=== PATIENT | female | born 1940 | race Caucasian/White ===

== ENCOUNTER → 2017-10-03 | Outpatient (CLI) | payer MEDICARE, OTHER ==
[~2017-10-03] MED LIST: ACET325 PO; ASPI81CH PO; CODLIVC PO; COPAXONE40 MG/1 ML SC; COPAXONE40 MG/1 ML SQ; CRANBERRY EXTRACT PO; FURO20 PO; GRAM-O-LECI1000 MG PO; Iron Supplemen325 MG PO; LAVAP17G PO; METO100ER PO; METO25ER PO; MULVITMIND PO; Macrodantin100 MG PO; NAPR220 PO; ONDA4ODT MM; OXYACE5T PO; Pacerone400 MG PO; Prilosec Otc20 MG PO; SOLI5 PO; SPIR25 PO; TORSE20 PO; Tambocor100 MG PO; Toprol Xl50 MG PO; XARELTO20 MG PO; [UNRECOGNIZED DRUG - CODE] PO; [UNRECOGNIZED DRUG - OTHER] PO
== END | disposition home or self-care (01) ==
LOC: OLS 16:43
DX: R31.9 Hematuria, unspecified (principal)
CPT/HCPCS: 87077; 87086; 87186

== ENCOUNTER → 2018-03-12 | Outpatient (CLI) | payer MEDICARE, OTHER | END | disposition home or self-care (01) | LOC: LAB 11:21 → LAB SHORT 11:21 | DX: R30.0 Dysuria (principal) | CPT/HCPCS: 87077; 87086; 87186 ==

== ENCOUNTER → 2018-03-29 | Outpatient (CLI) | payer MEDICARE, OTHER | END | disposition home or self-care (01) | LOC: LAB SHORT 16:27 → LAB 16:27 | DX: M54.9 Dorsalgia, unspecified (principal); G89.29 Other chronic pain; R30.0 Dysuria | CPT/HCPCS: 87077; 87086; 87186 ==

== ENCOUNTER → 2018-04-08 | Outpatient (CLI) | payer MEDICARE, OTHER | END | disposition home or self-care (01) | LOC: LAB SHORT 17:31 → LAB 17:31 | DX: R30.0 Dysuria (principal) | CPT/HCPCS: 87077; 87086 ==

== ENCOUNTER 2018-04-17 08:25 | Day surgery (SDC) | payer MEDICARE, OTHER | END 2018-04-17 22:43 | disposition home or self-care (01) | LOC: RAD 08:25 | DX: M47.817 Spondylosis without myelopathy or radiculopathy, lumbosacral region (principal); M96.1 Postlaminectomy syndrome, not elsewhere classified; Z98.1 Arthrodesis status; M51.24 Other intervertebral disc displacement, thoracic region; M48.04 Spinal stenosis, thoracic region; M99.53 Intervertebral disc stenosis of neural canal of lumbar region | CPT/HCPCS: 62305; 72129; 72132; Q9967 ==

== ENCOUNTER → 2018-10-30 | Outpatient (CLI) | payer MEDICARE, OTHER ==
[2018-11-01 14:07] LABS: HPV 16 Negative (Negative); HPV 18 Negative (Negative); HPV OTHER HR TYPES Negative (Negative)
== END | disposition home or self-care (01) ==
LOC: LAB SHORT 18:42 → LAB 18:42
PROVIDERS: Obstetrics & Gynecology Gynecology
DX: Z12.4 Encounter for screening for malignant neoplasm of cervix (principal)
CPT/HCPCS: 87624; G0123

== ENCOUNTER 2019-01-03 12:22 | Emergency (ER) | payer MEDICARE, OTHER ==
[~2019-01-03] VITALS: Ht 170.2 cm; Wt 70.3 kg
[2019-01-03] MEDS ORDERED: TYLECOD3 (12:35)
[2019-01-03 12:46] LABS: BASOPHILS ABSOLUTE AUTO 0.02 K/mm3 (0.00-0.23); BASOPHILS PERCENT AUTO 0 % (0-2); EOSINOPHILS ABSOLUTE AUTO 0.02 K/mm3 (0.00-0.68); EOSINOPHILS PERCENT AUTO 0 % (0-6); Hemoglobin 14.7 g/dL (11.5-16.0); IMMATURE GRAN ABSOLUTE AUTO 0.02 K/mm3 (0.00-0.10); IMMATURE GRAN PERCENT AUTO 0 % (0-1); LYMPHOCYTES ABSOLUTE AUTO 1.41 K/mm3 (0.84-5.20); LYMPHOCYTES PERCENT AUTO 20 % (21-46); MONOCYTES ABSOLUTE AUTO 0.85 K/mm3 (0.16-1.47); MONOCYTES PERCENT AUTO 12 % (4-13); Mean Corpuscular HGB 29.2 pg (26.0-34.0); Mean Corpuscular HGB Conc 33.4 g/dL (31.5-36.5); Mean Corpuscular Volume 87 fL (80-100); Mean Platelet Volume 11.9 fL (9.1-12.4); NEUTROPHILS ABSOLUTE AUTO 4.84 K/mm3 (1.96-9.15); NEUTROPHILS PERCENT AUTO 68 % (41-73); Platelet Count 181 K/mm3 (150-400); RDW Coefficient Variation 13.3 % (11.7-14.2); Red Blood Cell Count 5.04 M/mm3 (3.80-5.20); White Blood Cell Count 7.16 K/mm3 (4.00-11.30)
[2019-01-03 13:08] LABS: Alanine Aminotransfer (ALT/SGP 17 U/L (12-78); Albumin, Blood 3.5 g/dL (3.4-5.0); Albumin/Globulin Ratio 1.1 (0.8-1.8); Alk Phos 69 U/L (50-136); Anion Gap 9 mmol/L (6-16); Aspartate Aminotrans (AST/SGOT 18 U/L (12-37); Bilirubin, Total 0.4 mg/dL (0.1-1.0); Blood Urea Nitrogen 25 mg/dL (8-24); Bun/Creatinine Ratio 32.4 (12.0-20.0); CO2, Blood 26 mmol/L (21-32); Calcium, Blood 8.7 mg/dL (8.5-10.1); Chloride, Blood 102 mmol/L (98-108); Creatinine, Blood 0.77 mg/dL (0.40-1.00); Globulin, Blood 3.2 g/dL (2.2-4.0); Glomerular Filtration Rate >60 (60-); Glucose, Blood 117 mg/dL (70-99); Sodium, Blood 137 mmol/L (136-145); Total Protein, Blood 6.7 g/dL (6.4-8.2)
== END 2019-01-03 14:19 | disposition home or self-care (01) ==
LOC: ER 12:22
PROVIDERS: Emergency Medicine
DX: I48.91 Unspecified atrial fibrillation (principal); I48.92 Unspecified atrial flutter; I50.9 Heart failure, unspecified; M19.90 Unspecified osteoarthritis, unspecified site; Z88.2 Allergy status to sulfonamides; Z88.8 Allergy status to other drugs, medicaments and biological substances; Z79.899 Other long term (current) drug therapy
CPT/HCPCS: 71045; 80053; 85025; 92960; 93005; 93010; 96361-59; 96374-59; 99285-25; J2704; J3010; J7030

== ENCOUNTER 2019-03-06 05:08 | Observation (INO) | payer MEDICARE, OTHER ==
[~2019-03-06] VITALS: Ht 170.2 cm; Wt 70.3 kg
[~2019-03-06 05:08] MED LIST changes: +TYLECOD3
[2019-03-06 05:34] LABS: BASOPHILS ABSOLUTE AUTO 0.01 K/mm3 (0.00-0.23); BASOPHILS PERCENT AUTO 0 % (0-2); EOSINOPHILS ABSOLUTE AUTO 0.04 K/mm3 (0.00-0.68); EOSINOPHILS PERCENT AUTO 0 % (0-6); Hematocrit 47.5 % (33.0-51.0); Hemoglobin 15.7 g/dL (11.5-16.0); IMMATURE GRAN ABSOLUTE AUTO 0.03 K/mm3 (0.00-0.10); IMMATURE GRAN PERCENT AUTO 0 % (0-1); LYMPHOCYTES ABSOLUTE AUTO 1.41 K/mm3 (0.84-5.20); LYMPHOCYTES PERCENT AUTO 12 % (21-46); MONOCYTES ABSOLUTE AUTO 1.14 K/mm3 (0.16-1.47); MONOCYTES PERCENT AUTO 10 % (4-13); Mean Corpuscular HGB 29.2 pg (26.0-34.0); Mean Corpuscular HGB Conc 33.1 g/dL (31.5-36.5); Mean Corpuscular Volume 89 fL (80-100); Mean Platelet Volume 11.4 fL (9.1-12.4); NEUTROPHILS ABSOLUTE AUTO 9.39 K/mm3 (1.96-9.15); NEUTROPHILS PERCENT AUTO 78 % (41-73); Platelet Count 216 K/mm3 (150-400); RDW Coefficient Variation 13.4 % (11.7-14.2); RDW Standard Deviation 43.6 fL (35.1-46.3); Red Blood Cell Count 5.37 M/mm3 (3.80-5.20); White Blood Cell Count 12.02 K/mm3 (4.00-11.30)
[2019-03-06 05:57] LABS: Alanine Aminotransfer (ALT/SGP 19 U/L (12-78); Albumin, Blood 3.8 g/dL (3.4-5.0); Albumin/Globulin Ratio 1.1 (0.8-1.8); Alk Phos 83 U/L (50-136); Anion Gap 9 mmol/L (6-16); Aspartate Aminotrans (AST/SGOT 21 U/L (12-37); Bilirubin, Total 0.4 mg/dL (0.1-1.0); Blood Urea Nitrogen 19 mg/dL (8-24); Bun/Creatinine Ratio 25.8 (12.0-20.0); CO2, Blood 26 mmol/L (21-32); Calcium, Blood 8.9 mg/dL (8.5-10.1); Chloride, Blood 101 mmol/L (98-108); Creatinine, Blood 0.74 mg/dL (0.40-1.00); Globulin, Blood 3.4 g/dL (2.2-4.0); Glomerular Filtration Rate >60 (60-); Glucose, Blood 152 mg/dL (70-99); Potassium, Blood 3.7 mmol/L (3.5-5.5); Sodium, Blood 136 mmol/L (136-145); Total Protein, Blood 7.2 g/dL (6.4-8.2); Troponin I <0.015 ng/mL (0.000-0.040)
[2019-03-06 09:57] LABS: Source, Urine Clean Catch
[2019-03-06 10:03] LABS: Bilirubin, Urine Neg (Neg); Blood, Urine 4+ (Neg); Glucose Qualitative, Urine Neg (Neg); Ketones, Urine Neg (Neg); Leukocyte Esterase, Urine 3+ (Neg); Nitrite, Urine Pos (Neg); Protein, Urine 2+ (Neg); Urobilinogen, Urine NORM (Normal)
[2019-03-06 10:04] LABS: Appearance, Urine Clear (Clear); Color, Urine Yellow (P-Yellow)
[2019-03-06 10:11] LABS: Squamous Epithelial Cells Rare /hpf (Few); White Blood Cells, Urine TNTC /hpf (0-5)
[2019-03-06 10:12] LABS: Bacteria Mod /hpf; Calcium Oxalate Crystals Few /hpf
--- NOTE | 2019-03-06 11:50 | NUR ---
PT ARRIVAL. PT ARRIVED ON UNIT AT 1055. PT IS A&Ox4 AND 2 P TRANSFER D/T HER M.S. PT WAS ADMITTED FOR AFIB RVR AND WAS ON CARDIZEM GTT, CARDIZEM GTT WAS STOPPED APROX 1000 PER REPORT. PT IS STILL IN AFIB BUT RATE IS MORE CONTROLLED IN THE 60'S-70'S. PT DENIES CHEST PAIN/PRESSURE, N/V OR SOB AT THIS TIME. PT'S VS STABLE. PT HAS SUPERPUBIC CATH WHICH IS DRAINING YELLOW URINE TO GRAVITY. PT'S IS AT THE BEDSIDE. CALL LIGHT IN REACH, BED IS LOCKED AND LOW WILL CONTINUE TO MONITOR.
[2019-03-06 14:53] LABS: Troponin I 0.168 ng/mL (0.000-0.040)
[2019-03-06] MEDS ORDERED: DILT120 PO (16:35)
[2019-03-06] MEDS ORDERED: Aspir 8181 MG PO (16:36)
--- NOTE | 2019-03-06 16:59 | NUR ---
SHIFT SUMMARY. NO ACUTE CHANGES NOTED SINCE ADMIT. PT'S VS STABLE, PT IS STILL IN AFIB BUT RATE IS CONTROLED ON PO MEDICATIONS. PT DENIES CHEST PAIN/PRESSURE, N/V OR SOB. PT'S SUPER PUBIC CATH IS DRAINING YELLOW URINE WITH SOME SEDIMENT TO GRAVITY. PT IS TO BE D/C'D HOME AFTER EATING DINNER, PT'S MEDICATIONS CALLED INTO PHARMACY OF PT'S CHOICE, EDUCATION PROVIDED TO PT AND ON NEW MEDICATIONS AND AFIB. PT'S BELONGINGS PACKED UP, PT WAS HELPED TO GET DRESSED AND IV WAS D/C'D. PT'S AT THE BEDSIDE TO TAKE PT HOME.
== END 2019-03-06 18:03 | disposition home or self-care (01) ==
LOC: ER 05:08 → ERHOLD 05:09 → PCU 11:00
PROVIDERS: Emergency Medicine; ADMIT Internal Medicine
DX: I48.91 Unspecified atrial fibrillation (principal); R11.2 Nausea with vomiting, unspecified; I24.8 Other forms of acute ischemic heart disease; R77.8 Other specified abnormalities of plasma proteins; G35 Multiple sclerosis; M19.90 Unspecified osteoarthritis, unspecified site; Z79.899 Other long term (current) drug therapy; Z79.02 Long term (current) use of antithrombotics/antiplatelets; Z88.8 Allergy status to other drugs, medicaments and biological substances; Z88.1 Allergy status to other antibiotic agents; Z88.2 Allergy status to sulfonamides
CPT/HCPCS: 36415; 71045; 80053; 81001; 82550; 83690; 83735; 83880; 84484; 85025; 87077; 87086; 87186; 93005; 93010; 96365; 96366; 96367; 96368; 96375; 96376; 99285-25; G0378; J2405; J3480; J7030

== ENCOUNTER 2019-03-11 12:27 | Emergency (ER) | payer MEDICARE, OTHER ==
[~2019-03-11] VITALS: Ht 170.2 cm; Wt 71.7 kg
[~2019-03-11 12:27] MED LIST changes: +Aspir 8181 MG PO; +DILT120 PO
[2019-03-11 13:11] LABS: BASOPHILS ABSOLUTE AUTO 0.01 K/mm3 (0.00-0.23); BASOPHILS PERCENT AUTO 0 % (0-2); EOSINOPHILS ABSOLUTE AUTO 0.01 K/mm3 (0.00-0.68); EOSINOPHILS PERCENT AUTO 0 % (0-6); Hematocrit 43.1 % (33.0-51.0); Hemoglobin 14.5 g/dL (11.5-16.0); IMMATURE GRAN ABSOLUTE AUTO 0.01 K/mm3 (0.00-0.10); IMMATURE GRAN PERCENT AUTO 0 % (0-1); LYMPHOCYTES ABSOLUTE AUTO 1.17 K/mm3 (0.84-5.20); LYMPHOCYTES PERCENT AUTO 16 % (21-46); MONOCYTES ABSOLUTE AUTO 0.81 K/mm3 (0.16-1.47); MONOCYTES PERCENT AUTO 11 % (4-13); Mean Corpuscular HGB 30.1 pg (26.0-34.0); Mean Corpuscular HGB Conc 33.6 g/dL (31.5-36.5); Mean Corpuscular Volume 89 fL (80-100); NEUTROPHILS ABSOLUTE AUTO 5.38 K/mm3 (1.96-9.15); NEUTROPHILS PERCENT AUTO 73 % (41-73); Platelet Count 209 K/mm3 (150-400); RDW Coefficient Variation 13.7 % (11.7-14.2); RDW Standard Deviation 44.7 fL (35.1-46.3); Red Blood Cell Count 4.82 M/mm3 (3.80-5.20); White Blood Cell Count 7.39 K/mm3 (4.00-11.30)
[2019-03-11 13:33] LABS: Alanine Aminotransfer (ALT/SGP 49 U/L (12-78); Albumin, Blood 3.5 g/dL (3.4-5.0); Albumin/Globulin Ratio 1.1 (0.8-1.8); Alk Phos 63 U/L (50-136); Anion Gap 7 mmol/L (6-16); Aspartate Aminotrans (AST/SGOT 35 U/L (12-37); Bilirubin, Total 0.5 mg/dL (0.1-1.0); Blood Urea Nitrogen 20 mg/dL (8-24); Bun/Creatinine Ratio 32.4 (12.0-20.0); CO2, Blood 27 mmol/L (21-32); Calcium, Blood 8.4 mg/dL (8.5-10.1); Chloride, Blood 98 mmol/L (98-108); Creatinine, Blood 0.62 mg/dL (0.40-1.00); Globulin, Blood 3.2 g/dL (2.2-4.0); Glomerular Filtration Rate >60 (60-); Glucose, Blood 116 mg/dL (70-99); Potassium, Blood 4.2 mmol/L (3.5-5.5); Sodium, Blood 132 mmol/L (136-145); Total Protein, Blood 6.7 g/dL (6.4-8.2); Troponin I <0.015 ng/mL (0.000-0.040)
[2019-03-11] MEDS ORDERED: ELIQUIS5 MG PO (15:28)
[2019-03-11] MEDS ORDERED: Percocet 5-3251 EACH PO (15:28)
[2019-03-11] MEDS ORDERED: TORSE20 PO (15:29)
[2019-03-11] MEDS ORDERED: Toprol Xl25 MG PO (15:30)
[2019-03-11] MEDS ORDERED: PANT40 PO (15:30)
[2019-03-11] MEDS ORDERED: SPIR25 PO (15:31)
[2019-03-11] MEDS ORDERED: RALO60 PO (16:07)
[2019-03-11] MEDS ORDERED: Elemental Calc600 MG PO (16:08)
[2019-03-11] MEDS ORDERED: VITAMIN D32000 UNI1 PO (16:08)
[2019-03-11] MEDS ORDERED: ACET325 PO (16:09)
[2019-03-11] MEDS ORDERED: COPAXONE40 MG/1 ML SC (16:14)
[2019-03-11] MEDS ORDERED: Amiodarone HCl200 MG PO (17:04)
[2019-03-11] MEDS ORDERED: Pacerone400 MG PO (17:04)
== END 2019-03-11 17:10 | disposition home or self-care (01) ==
LOC: ER 12:27
PROVIDERS: Emergency Medicine
DX: I48.91 Unspecified atrial fibrillation (principal); G89.29 Other chronic pain; M54.9 Dorsalgia, unspecified; Z87.891 Personal history of nicotine dependence; Z79.899 Other long term (current) drug therapy; Z88.2 Allergy status to sulfonamides; Z88.8 Allergy status to other drugs, medicaments and biological substances; Z88.1 Allergy status to other antibiotic agents; Z79.82 Long term (current) use of aspirin
CPT/HCPCS: 36415; 71045; 80053; 83880; 84484; 85025; 92960; 93005; 93010; 96374-59; 99285-25; J0282; J2704; J7030

== ENCOUNTER → 2019-04-18 | Outpatient (CLI) | payer MEDICARE, OTHER ==
[~2019-04-18] MED LIST changes: +Amiodarone HCl200 MG PO; +ELIQUIS5 MG PO; +Elemental Calc600 MG PO; +PANT40 PO; +Percocet 5-3251 EACH PO; +RALO60 PO; +Toprol Xl25 MG PO; +VITAMIN D32000 UNI1 PO
== END | disposition home or self-care (01) ==
LOC: LAB 18:06 → LAB SHORT 18:06
DX: R30.0 Dysuria (principal)
CPT/HCPCS: 87077; 87086; 87186

== ENCOUNTER → 2019-08-27 | Outpatient (CLI) | payer MEDICARE, OTHER ==
[2019-08-27 20:27] LABS: U Amphetamine Screen Not Detected; U Barbituate Screen Not Detected; U Benzodiazapine Screen Not Detected; U Cocaine Screen Not Detected; U Methadone Screen Not Detected; U Methamphetamine Screen Not Detected; U Opiates Screen Not Detected; U Oxycodone Screen DETECTED
[2019-08-27 20:28] LABS: U Buprenorphine Screen Not Detected; U Cannabinoids Screen Not Detected; U Propoxyphene Screen Not Detected
== END ==
LOC: LAB SHORT 17:46 → LAB 17:46
PROVIDERS: Nurse Practitioner Family
DX: Z51.81 Encounter for therapeutic drug level monitoring (principal); Z79.899 Other long term (current) drug therapy

== ENCOUNTER 2019-09-27 08:51 | Emergency (ER) | payer MEDICARE, OTHER ==
[~2019-09-27] VITALS: Ht 170.2 cm; Wt 71.7 kg
[2019-09-27] MEDS ORDERED: ZYRTEC10 M2 (09:37)
[2019-09-27] MEDS ORDERED: PACERONE100 M1 PO (09:37)
[2019-09-27 09:51] LABS: BASOPHILS ABSOLUTE AUTO 0.02 K/mm3 (0.00-0.23); BASOPHILS PERCENT AUTO 0 % (0-2); EOSINOPHILS ABSOLUTE AUTO 0.03 K/mm3 (0.00-0.68); EOSINOPHILS PERCENT AUTO 0 % (0-6); Hematocrit 45.8 % (33.0-51.0); IMMATURE GRAN ABSOLUTE AUTO 0.01 K/mm3 (0.00-0.10); IMMATURE GRAN PERCENT AUTO 0 % (0-1); LYMPHOCYTES ABSOLUTE AUTO 1.34 K/mm3 (0.84-5.20); LYMPHOCYTES PERCENT AUTO 16 % (21-46); MONOCYTES ABSOLUTE AUTO 0.82 K/mm3 (0.16-1.47); MONOCYTES PERCENT AUTO 10 % (4-13); Mean Corpuscular HGB 29.2 pg (26.0-34.0); Mean Corpuscular HGB Conc 32.8 g/dL (31.5-36.5); Mean Corpuscular Volume 89 fL (80-100); Mean Platelet Volume 11.9 fL (9.1-12.4); NEUTROPHILS ABSOLUTE AUTO 6.15 K/mm3 (1.96-9.15); NEUTROPHILS PERCENT AUTO 74 % (41-73); Platelet Count 186 K/mm3 (150-400); RDW Coefficient Variation 13.6 % (11.7-14.2); RDW Standard Deviation 44.6 fL (35.1-46.3); Red Blood Cell Count 5.13 M/mm3 (3.80-5.20); White Blood Cell Count 8.37 K/mm3 (4.00-11.30)
[2019-09-27 10:14] LABS: Alanine Aminotransfer (ALT/SGP 14 U/L (12-78); Albumin, Blood 3.5 g/dL (3.4-5.0); Albumin/Globulin Ratio 1.1 (0.8-1.8); Alk Phos 80 U/L (50-136); Anion Gap 10 mmol/L (6-16); Aspartate Aminotrans (AST/SGOT 18 U/L (12-37); Bilirubin, Total 0.6 mg/dL (0.1-1.0); Blood Urea Nitrogen 17 mg/dL (8-24); CO2, Blood 25 mmol/L (21-32); Calcium, Blood 8.6 mg/dL (8.5-10.1); Chloride, Blood 103 mmol/L (98-108); Creatinine, Blood 0.77 mg/dL (0.40-1.00); Globulin, Blood 3.3 g/dL (2.2-4.0); Glomerular Filtration Rate >60 (60-); Glucose, Blood 130 mg/dL (70-99); Potassium, Blood 3.6 mmol/L (3.5-5.5); Sodium, Blood 138 mmol/L (136-145); Total Protein, Blood 6.8 g/dL (6.4-8.2)
== END 2019-09-27 11:11 | disposition home or self-care (01) ==
LOC: ER 08:51
PROVIDERS: Emergency Medicine
DX: I48.0 Paroxysmal atrial fibrillation (principal); M19.90 Unspecified osteoarthritis, unspecified site; G35 Multiple sclerosis; Z88.2 Allergy status to sulfonamides; Z88.1 Allergy status to other antibiotic agents; Z88.8 Allergy status to other drugs, medicaments and biological substances; Z79.899 Other long term (current) drug therapy
CPT/HCPCS: 36415; 71045; 80053; 85025; 93005; 93010; 99285-25; J2704; J7030

== ENCOUNTER 2019-10-11 15:04 | Emergency (ER) | payer MEDICARE, OTHER ==
[~2019-10-11] VITALS: Ht 157.5 cm; Wt 61.2 kg
[~2019-10-11 15:04] MED LIST changes: +PACERONE100 M1 PO; +ZYRTEC10 M2
[2019-10-11 15:36] LABS: BASOPHILS ABSOLUTE AUTO 0.02 K/mm3 (0.00-0.23); BASOPHILS PERCENT AUTO 0 % (0-2); EOSINOPHILS ABSOLUTE AUTO 0.05 K/mm3 (0.00-0.68); EOSINOPHILS PERCENT AUTO 1 % (0-6); Hematocrit 46.7 % (33.0-51.0); Hemoglobin 15.3 g/dL (11.5-16.0); IMMATURE GRAN ABSOLUTE AUTO 0.02 K/mm3 (0.00-0.10); IMMATURE GRAN PERCENT AUTO 0 % (0-1); LYMPHOCYTES ABSOLUTE AUTO 1.64 K/mm3 (0.84-5.20); LYMPHOCYTES PERCENT AUTO 20 % (21-46); MONOCYTES ABSOLUTE AUTO 0.76 K/mm3 (0.16-1.47); MONOCYTES PERCENT AUTO 10 % (4-13); Mean Corpuscular HGB 29.7 pg (26.0-34.0); Mean Corpuscular HGB Conc 32.8 g/dL (31.5-36.5); Mean Corpuscular Volume 91 fL (80-100); Mean Platelet Volume 11.1 fL (9.1-12.4); NEUTROPHILS ABSOLUTE AUTO 5.55 K/mm3 (1.96-9.15); NEUTROPHILS PERCENT AUTO 69 % (41-73); Platelet Count 271 K/mm3 (150-400); RDW Coefficient Variation 13.2 % (11.7-14.2); RDW Standard Deviation 44.4 fL (35.1-46.3); Red Blood Cell Count 5.16 M/mm3 (3.80-5.20); White Blood Cell Count 8.04 K/mm3 (4.00-11.30)
[2019-10-11 15:59] LABS: Alanine Aminotransfer (ALT/SGP 15 U/L (12-78); Albumin, Blood 3.5 g/dL (3.4-5.0); Alk Phos 76 U/L (50-136); Anion Gap 7 mmol/L (6-16); Aspartate Aminotrans (AST/SGOT 18 U/L (12-37); Bilirubin, Total 0.3 mg/dL (0.1-1.0); Blood Urea Nitrogen 25 mg/dL (8-24); Bun/Creatinine Ratio 30.3 (12.0-20.0); CO2, Blood 29 mmol/L (21-32); Calcium, Blood 8.8 mg/dL (8.5-10.1); Chloride, Blood 100 mmol/L (98-108); Creatinine, Blood 0.82 mg/dL (0.40-1.00); Globulin, Blood 3.4 g/dL (2.2-4.0); Glomerular Filtration Rate >60 (60-); Glucose, Blood 123 mg/dL (70-99); Sodium, Blood 136 mmol/L (136-145); Total Protein, Blood 6.9 g/dL (6.4-8.2); Troponin I <0.015 ng/mL (0.000-0.040)
[2019-10-11] MEDS ORDERED: Vibramycin100 MG PO (16:32)
== END 2019-10-11 16:56 | disposition home or self-care (01) ==
LOC: ER 15:04
PROVIDERS: Nurse Practitioner
DX: J18.9 Pneumonia, unspecified organism (principal); I48.91 Unspecified atrial fibrillation; G35 Multiple sclerosis; M19.90 Unspecified osteoarthritis, unspecified site; Z88.2 Allergy status to sulfonamides; Z88.8 Allergy status to other drugs, medicaments and biological substances; Z88.1 Allergy status to other antibiotic agents; Z79.899 Other long term (current) drug therapy
CPT/HCPCS: 36415; 71046; 80053; 83880; 84484; 85025; 92960; 93005; 93010; 99285-25; J2704; J7030

== ENCOUNTER 2020-04-22 14:25 | Emergency (ER) | payer MEDICARE, OTHER | END 2020-04-22 15:51 | disposition home or self-care (01) | LOC: ER 14:25 | DX: Z46.6 Encounter for fitting and adjustment of urinary device (principal); Z43.5 Encounter for attention to cystostomy; I48.91 Unspecified atrial fibrillation; Z88.2 Allergy status to sulfonamides; Z88.1 Allergy status to other antibiotic agents; Z88.8 Allergy status to other drugs, medicaments and biological substances; Z79.01 Long term (current) use of anticoagulants; Z79.899 Other long term (current) drug therapy ==

== ENCOUNTER 2022-01-06 17:30 | Emergency (ER) | payer MEDICARE, OTHER ==
[~2022-01-06] VITALS: Ht 170.2 cm; Wt 68.0 kg
[~2022-01-06 17:30] MED LIST changes: +ACET500 PO; +CENTRUM SILVER1 EAC2 PO; +MIRALAX17 GM PO; +TUMS500 MG PO; +VITAMIN D-32000 UNIT PO; +Vibramycin100 MG PO
[2022-01-06 18:48] LABS: BASOPHILS ABSOLUTE AUTO 0.02 K/mm3 (0.00-0.23); BASOPHILS PERCENT AUTO 0 % (0-2); EOSINOPHILS ABSOLUTE AUTO 0.05 K/mm3 (0.00-0.68); EOSINOPHILS PERCENT AUTO 1 % (0-6); Hematocrit 48.4 % (33.0-51.0); Hemoglobin 16.2 g/dL (11.5-16.0); IMMATURE GRAN ABSOLUTE AUTO 0.02 K/mm3 (0.00-0.10); IMMATURE GRAN PERCENT AUTO 0 % (0-1); LYMPHOCYTES ABSOLUTE AUTO 1.11 K/mm3 (0.84-5.20); LYMPHOCYTES PERCENT AUTO 13 % (21-46); MONOCYTES ABSOLUTE AUTO 0.77 K/mm3 (0.16-1.47); MONOCYTES PERCENT AUTO 9 % (4-13); Mean Corpuscular HGB 30.1 pg (26.0-34.0); Mean Corpuscular HGB Conc 33.5 g/dL (31.5-36.5); Mean Corpuscular Volume 90 fL (80-100); NEUTROPHILS ABSOLUTE AUTO 6.31 K/mm3 (1.96-9.15); NEUTROPHILS PERCENT AUTO 76 % (41-73); Platelet Count 128 K/mm3 (150-400); RDW Coefficient Variation 14.3 % (11.7-14.2); Red Blood Cell Count 5.38 M/mm3 (3.80-5.20); White Blood Cell Count 8.28 K/mm3 (4.00-11.30)
[2022-01-06 19:14] LABS: Albumin, Blood 3.6 g/dL (3.4-5.0); Albumin/Globulin Ratio 1.2 (0.8-1.8); Bilirubin, Total 0.8 mg/dL (0.1-1.0); Globulin, Blood 3.1 g/dL (2.2-4.0); Magnesium, Blood 2.8 mg/dL (1.6-2.4); Potassium, Blood 4.2 mmol/L (3.5-5.5); Total Protein, Blood 6.7 g/dL (6.4-8.2)
[2022-01-06 22:37] LABS: Source, Urine Clean Catch
[2022-01-06 22:46] LABS: Bilirubin, Urine Neg (Neg); Blood, Urine 2+ (Neg); Glucose Qualitative, Urine Neg (Neg); Ketones, Urine Neg (Neg); Leukocyte Esterase, Urine 2+ (Neg); Nitrite, Urine Neg (Neg); Protein, Urine 1+ (Neg); Urobilinogen, Urine NORM (Normal)
[2022-01-06 22:55] LABS: Appearance, Urine Clear (Clear); Color, Urine Pale Yellow (P-Yellow)
[2022-01-06 23:15] LABS: Bacteria Rare /hpf; Red Blood Cells, Urine 0-2 /hpf (0-2); Squamous Epithelial Cells Not Seen /hpf (Few); White Blood Cells, Urine 0-2 /hpf (0-5)
== END 2022-01-07 01:54 | disposition home or self-care (01) ==
LOC: ER 17:30
PROVIDERS: Physician Assistant
DX: I48.91 Unspecified atrial fibrillation (principal); Z79.01 Long term (current) use of anticoagulants; Z79.899 Other long term (current) drug therapy; Z88.2 Allergy status to sulfonamides; Z88.8 Allergy status to other drugs, medicaments and biological substances; Z87.891 Personal history of nicotine dependence
CPT/HCPCS: 36415; 71045; 80053; 81001; 83690; 83735; 83880; 84484; 85025; 87077; 87086; 87186; 93005; 93010; 96361; 96374; 99285-25; A9270; J7030

== ENCOUNTER → 2022-01-11 | Outpatient (CLI) | payer MEDICARE, OTHER ==
[2022-01-11 16:11] LABS: BASOPHILS ABSOLUTE AUTO 0.01 K/mm3 (0.00-0.23); BASOPHILS PERCENT AUTO 0 % (0-2); EOSINOPHILS ABSOLUTE AUTO 0.01 K/mm3 (0.00-0.68); EOSINOPHILS PERCENT AUTO 0 % (0-6); Hematocrit 47.6 % (33.0-51.0); Hemoglobin 15.9 g/dL (11.5-16.0); IMMATURE GRAN ABSOLUTE AUTO 0.01 K/mm3 (0.00-0.10); IMMATURE GRAN PERCENT AUTO 0 % (0-1); LYMPHOCYTES ABSOLUTE AUTO 1.03 K/mm3 (0.84-5.20); LYMPHOCYTES PERCENT AUTO 17 % (21-46); MONOCYTES ABSOLUTE AUTO 0.52 K/mm3 (0.16-1.47); MONOCYTES PERCENT AUTO 9 % (4-13); Mean Corpuscular HGB 30.8 pg (26.0-34.0); Mean Corpuscular HGB Conc 33.4 g/dL (31.5-36.5); Mean Corpuscular Volume 92 fL (80-100); NEUTROPHILS ABSOLUTE AUTO 4.37 K/mm3 (1.96-9.15); NEUTROPHILS PERCENT AUTO 73 % (41-73); RDW Coefficient Variation 14.9 % (11.7-14.2); RDW Standard Deviation 49.6 fL (35.1-46.3); Red Blood Cell Count 5.16 M/mm3 (3.80-5.20); White Blood Cell Count 5.95 K/mm3 (4.00-11.30)
[2022-01-11 16:13] LABS: Mean Platelet Volume 11.7 fL (9.1-12.4); Platelet Count 133 K/mm3 (150-400)
[2022-01-11 16:20] LABS: Albumin, Blood 3.6 g/dL (3.4-5.0); Albumin/Globulin Ratio 1.2 (0.8-1.8); Bilirubin, Total 1.2 mg/dL (0.1-1.0); Bun/Creatinine Ratio 22.9 (12.0-20.0); Calcium, Blood 9.1 mg/dL (8.5-10.1); Creatinine, Blood 1.31 mg/dL (0.40-1.00); Potassium, Blood 4.4 mmol/L (3.5-5.5); Total Protein, Blood 6.6 g/dL (6.4-8.2)
== END | disposition home or self-care (01) ==
LOC: LAB SHORT 16:05
PROVIDERS: Physician Assistant
DX: R11.2 Nausea with vomiting, unspecified (principal); R10.9 Unspecified abdominal pain
CPT/HCPCS: 80053; 83690; 85025; 87077; 87086; 87186

== ENCOUNTER 2022-01-20 11:56 | Observation (INO) | payer MEDICARE, OTHER ==
[~2022-01-20] VITALS: Ht 170.2 cm; Wt 70.8 kg
[2022-01-20 12:31] LABS: BASOPHILS ABSOLUTE AUTO 0.02 K/mm3 (0.00-0.23); BASOPHILS PERCENT AUTO 0 % (0-2); EOSINOPHILS ABSOLUTE AUTO 0.01 K/mm3 (0.00-0.68); EOSINOPHILS PERCENT AUTO 0 % (0-6); Hemoglobin 16.6 g/dL (11.5-16.0); IMMATURE GRAN ABSOLUTE AUTO 0.02 K/mm3 (0.00-0.10); IMMATURE GRAN PERCENT AUTO 0 % (0-1); LYMPHOCYTES ABSOLUTE AUTO 0.79 K/mm3 (0.84-5.20); LYMPHOCYTES PERCENT AUTO 11 % (21-46); MONOCYTES ABSOLUTE AUTO 0.66 K/mm3 (0.16-1.47); MONOCYTES PERCENT AUTO 9 % (4-13); Mean Corpuscular HGB 30.5 pg (26.0-34.0); Mean Corpuscular HGB Conc 33.2 g/dL (31.5-36.5); Mean Corpuscular Volume 92 fL (80-100); Mean Platelet Volume 10.8 fL (9.1-12.4); NEUTROPHILS ABSOLUTE AUTO 5.76 K/mm3 (1.96-9.15); NEUTROPHILS PERCENT AUTO 79 % (41-73); Platelet Count 183 K/mm3 (150-400); RDW Coefficient Variation 16.1 % (11.7-14.2); RDW Standard Deviation 51.9 fL (35.1-46.3); Red Blood Cell Count 5.44 M/mm3 (3.80-5.20); White Blood Cell Count 7.26 K/mm3 (4.00-11.30)
[2022-01-20 12:49] LABS: Albumin, Blood 3.4 g/dL (3.4-5.0); Albumin/Globulin Ratio 1.2 (0.8-1.8); Bun/Creatinine Ratio 46.3 (12.0-20.0); Calcium, Blood 9.3 mg/dL (8.5-10.1); Creatinine, Blood 0.95 mg/dL (0.40-1.00); Globulin, Blood 2.9 g/dL (2.2-4.0); Potassium, Blood 4.8 mmol/L (3.5-5.5); Total Protein, Blood 6.3 g/dL (6.4-8.2)
[2022-01-20] MEDS ORDERED: CEPH500 PO (12:51)
[2022-01-20] MEDS ORDERED: ATEN25 PO (12:51)
[2022-01-20] MEDS ORDERED: ROPI.25 PO (12:52)
[2022-01-20 14:57] LABS: Source, Urine Clean Catch
[2022-01-20 15:04] LABS: Bilirubin, Urine Neg (Neg); Blood, Urine 2+ (Neg); Color, Urine Yellow (P-Yellow); Glucose Qualitative, Urine Neg (Neg); Ketones, Urine Neg (Neg); Leukocyte Esterase, Urine Neg (Neg); Nitrite, Urine Neg (Neg); Protein, Urine 1+ (Neg); Urobilinogen, Urine NORM (Normal)
[2022-01-20 15:54] LABS: Appearance, Urine Hazy (Clear)
[2022-01-20 15:56] LABS: Amorphous Light (0-Heavy); Bacteria Mod /hpf; Granular Casts 0-2 /lpf (0); Mucus Light (0-Heavy); Red Blood Cells, Urine 0-2 /hpf (0-2); Squamous Epithelial Cells Few /hpf (Few); White Blood Cells, Urine 0-2 /hpf (0-5)
--- NOTE | 2022-01-20 19:03 | NUR ---
SHIFT SUMMARY PATIENT ADMITTED FROM ER FOR A-FIB, FALLING AT HOME AND INCREASED WEAKNESS, NAUSEA, AND DRY HEAVING. A&OX4. SUPRAPUBIC CATHETER IN PLACE ON ADMISSION. USES WALKER AND WHEELCHAIR AT HOME. REPORTS CHRONIC CONSTIPATION. ABRASION TO RIGHT ELBOW, BRUISING TO LOWER BACK, AND A REDDENED AREA ON RIGHT INNER/UPPER BUTTOCK. 1/2 NACL RUNNING. ON TELE 100S. C/O CHRONIC BACK PAIN. ADMISSION DOCUMENTATION COMPLETED. WILL CONTINUE TO MONITOR.
--- NOTE | 2022-01-21 03:19 | NUR ---
HEARING OFFICER SUMMARY HAS BEEN RESTING QUIETLY WITH A FEW INTERRUPTIONS SINCE HS. IVF WAS INFUSING ORDERED, PT KEPT BENDING ARM WHICH INTERRUPTED IV FLOW AND CAUSED MACHINE TO BEEP. PT DRINKING FLUIDS WELL, STATED SHE WANTED THE IV TURNED OFF. HAS BEEN RESTING QUIETLY SINCE. VSS. FALL PRECAUIONS IN USE. CALL LIGHT IN REACH
[2022-01-21 05:21] LABS: BASOPHILS ABSOLUTE AUTO 0.01 K/mm3 (0.00-0.23); BASOPHILS PERCENT AUTO 0 % (0-2); EOSINOPHILS ABSOLUTE AUTO 0.04 K/mm3 (0.00-0.68); EOSINOPHILS PERCENT AUTO 1 % (0-6); Hematocrit 47.3 % (33.0-51.0); Hemoglobin 15.6 g/dL (11.5-16.0); IMMATURE GRAN ABSOLUTE AUTO 0.02 K/mm3 (0.00-0.10); IMMATURE GRAN PERCENT AUTO 0 % (0-1); LYMPHOCYTES ABSOLUTE AUTO 0.93 K/mm3 (0.84-5.20); LYMPHOCYTES PERCENT AUTO 15 % (21-46); MONOCYTES ABSOLUTE AUTO 0.75 K/mm3 (0.16-1.47); MONOCYTES PERCENT AUTO 12 % (4-13); Mean Corpuscular HGB 30.3 pg (26.0-34.0); Mean Corpuscular Volume 92 fL (80-100); Mean Platelet Volume 10.4 fL (9.1-12.4); NEUTROPHILS ABSOLUTE AUTO 4.49 K/mm3 (1.96-9.15); NEUTROPHILS PERCENT AUTO 72 % (41-73); Platelet Count 171 K/mm3 (150-400); RDW Coefficient Variation 15.9 % (11.7-14.2); RDW Standard Deviation 52.2 fL (35.1-46.3); Red Blood Cell Count 5.15 M/mm3 (3.80-5.20); White Blood Cell Count 6.24 K/mm3 (4.00-11.30)
[2022-01-21 06:01] LABS: Albumin/Globulin Ratio 1.2 (0.8-1.8); Bilirubin, Total 1.8 mg/dL (0.1-1.0); Bun/Creatinine Ratio 35.6 (12.0-20.0); Calcium, Blood 8.6 mg/dL (8.5-10.1); Creatinine, Blood 0.81 mg/dL (0.40-1.00); Globulin, Blood 2.5 g/dL (2.2-4.0); Magnesium, Blood 2.5 mg/dL (1.6-2.4); Potassium, Blood 4.3 mmol/L (3.5-5.5); Total Protein, Blood 5.5 g/dL (6.4-8.2)
--- NOTE | 2022-01-21 17:28 | NUR ---
SHIFT SUMMARY; PATIENT HAD UNEVENTFUL DAY SHE REFUSED IV FLUIDS TODAY AND HER IV ON HER LEFT AC HAD ALSO INFILTRATED THIS AFTERNOON. SHE REMAINS ON TELE WITH AFIB AND HR OF 11O'S. SHE IS AO X 4 MOST OF DAY WITH A FEW LIMITED EPISODES OF CONFUSION NOTED. HER VITAL SIGNS ARE WITHIN NORMAL LIMITS AND PATIENT SAYS SHE HAS NOT HAD ANY NAUSEA TODAY. ADVISED PATIENT SHE MAY GO HOME TODAY OR TOMORROW HOWEVER AT THIS WRITING NO DC ORDERS ARE NOTED.
--- NOTE | 2022-01-22 03:41 | NUR ---
IN STORE BANKER SUMMARY AWAKE AT INTERVALS. UP TO BEDSIDE COMMODE AF FEW TIMES WITH ASSIST. SUPRAPUBIC CATH DRAINING CLEAR. TOLERATING PO ANTIBIOTICS, EVEN THOUGH PT VOICED NOT WANTING TO TAKE THE ANTIBIOTIC MORE THAN ONCE PER DAY. TEACHING GIVEN AND PT COMPLIANT WITH MEDICAL REGIMINE. MED TELE - A FIB CONTINUES. ANALGESICS GIVEN FOR CHRONIC BACK PAIN. CURRENTLY BACK IN BED WITH CALL LIGHT IN REACH. RESTING QUIETLY. VSS.
[2022-01-22 05:56] LABS: BASOPHILS ABSOLUTE AUTO 0.01 K/mm3 (0.00-0.23); BASOPHILS PERCENT AUTO 0 % (0-2); EOSINOPHILS ABSOLUTE AUTO 0.04 K/mm3 (0.00-0.68); EOSINOPHILS PERCENT AUTO 1 % (0-6); Hematocrit 48.8 % (33.0-51.0); Hemoglobin 15.7 g/dL (11.5-16.0); IMMATURE GRAN ABSOLUTE AUTO 0.02 K/mm3 (0.00-0.10); IMMATURE GRAN PERCENT AUTO 0 % (0-1); LYMPHOCYTES ABSOLUTE AUTO 0.75 K/mm3 (0.84-5.20); LYMPHOCYTES PERCENT AUTO 13 % (21-46); MONOCYTES ABSOLUTE AUTO 0.76 K/mm3 (0.16-1.47); MONOCYTES PERCENT AUTO 13 % (4-13); Mean Corpuscular HGB 30.3 pg (26.0-34.0); Mean Corpuscular HGB Conc 32.2 g/dL (31.5-36.5); Mean Corpuscular Volume 94 fL (80-100); Mean Platelet Volume 9.9 fL (9.1-12.4); NEUTROPHILS ABSOLUTE AUTO 4.18 K/mm3 (1.96-9.15); NEUTROPHILS PERCENT AUTO 73 % (41-73); Platelet Count 170 K/mm3 (150-400); RDW Coefficient Variation 16.1 % (11.7-14.2); RDW Standard Deviation 54.8 fL (35.1-46.3); Red Blood Cell Count 5.18 M/mm3 (3.80-5.20); White Blood Cell Count 5.76 K/mm3 (4.00-11.30)
[2022-01-22 06:24] LABS: Albumin/Globulin Ratio 1.1 (0.8-1.8); Bilirubin, Total 1.4 mg/dL (0.1-1.0); Bun/Creatinine Ratio 26.3 (12.0-20.0); Calcium, Blood 8.6 mg/dL (8.5-10.1); Creatinine, Blood 1.14 mg/dL (0.40-1.00); Globulin, Blood 2.8 g/dL (2.2-4.0); Magnesium, Blood 2.5 mg/dL (1.6-2.4); Potassium, Blood 4.3 mmol/L (3.5-5.5); Total Protein, Blood 5.8 g/dL (6.4-8.2)
== END 2022-01-22 13:56 | disposition home health service (06) ==
LOC: ER 11:56 → MEDS 11:57
PROVIDERS: Physician Assistant; ADMIT Family Medicine
DX: I48.91 Unspecified atrial fibrillation (principal); R74.01 Elevation of levels of liver transaminase levels; Z79.01 Long term (current) use of anticoagulants; I11.0 Hypertensive heart disease with heart failure; I50.32 Chronic diastolic (congestive) heart failure; G35 Multiple sclerosis; M81.0 Age-related osteoporosis without current pathological fracture; G25.81 Restless legs syndrome; T83.518A Infection and inflammatory reaction due to other urinary catheter, initial encounter; B96.20 Unspecified Escherichia coli [E. coli] as the cause of diseases classified elsewhere; E87.1 Hypo-osmolality and hyponatremia; Z88.1 Allergy status to other antibiotic agents; Z88.2 Allergy status to sulfonamides; Z88.8 Allergy status to other drugs, medicaments and biological substances; Z87.891 Personal history of nicotine dependence; Z91.81 History of falling; Y73.8 Miscellaneous gastroenterology and urology devices associated with adverse incidents, not elsewhere classified
CPT/HCPCS: 36415; 74177; 80053; 81001; 83690; 83735; 85025; 87086; 93005; 93010; 93306; 94760; 94762; 96374-59; 96375; 97110; 97161; 97530; 99285-25; A9270; G0378; J1160; J2405; J7030; Q9967

== ENCOUNTER 2022-02-18 14:37 | Inpatient (IN) | payer MEDICARE, OTHER ==
[~2022-02-18] VITALS: Ht 170.2 cm; Wt 70.8 kg
[~2022-02-18 14:37] MED LIST changes: +ATEN25 PO; +CEPH500 PO; +ROPI.25 PO
[2022-02-18 16:04] LABS: Hematocrit 46.2 % (33.0-51.0); Hemoglobin 15.7 g/dL (11.5-16.0); Mean Corpuscular HGB 30.2 pg (26.0-34.0); Mean Corpuscular Volume 89 fL (80-100); Mean Platelet Volume 11.5 fL (9.1-12.4); Platelet Count 249 K/mm3 (150-400); RDW Coefficient Variation 15.8 % (11.7-14.2)
[2022-02-18 16:05] LABS: White Blood Cell Count 10.85 K/mm3 (4.00-11.30)
[2022-02-18 16:19] LABS: Albumin, Blood 3.2 g/dL (3.4-5.0); Albumin/Globulin Ratio 0.9 (0.8-1.8); Bilirubin, Total 1.4 mg/dL (0.1-1.0); Bun/Creatinine Ratio 36.3 (12.0-20.0); Calcium, Blood 9.1 mg/dL (8.5-10.1); Creatinine, Blood 0.8 mg/dL (0.40-1.00); Globulin, Blood 3.4 g/dL (2.2-4.0); Potassium, Blood 5.3 mmol/L (3.5-5.5); Total Protein, Blood 6.6 g/dL (6.4-8.2)
[2022-02-18 16:38] LABS: BAND PERCENT MAN 1 % (0-8); BASOPHILS PERCENT MAN 0 % (0-2); EOSINOPHILS PERCENT MAN 0 % (0-6); LYMPHOCYTES ABSOLUTE MAN 1.73 K/mm3 (0.84-5.20); LYMPHOCYTES PERCENT MAN 16 % (21-46); MONOCYTES ABSOLUTE MAN 0.54 K/mm3 (0.16-1.47); MONOCYTES PERCENT MAN 5 % (4-13); NEUTROPHILS ABSOLUTE MAN 8.57 K/mm3 (1.96-9.15); SEG NEUTROPHILS PERCENT MAN 78 % (41-73); TOTAL CELLS COUNTED 100
[2022-02-18 20:12] LABS: Bun/Creatinine Ratio 35.4 (12.0-20.0); Calcium, Blood 8.7 mg/dL (8.5-10.1); Creatinine, Blood 0.82 mg/dL (0.40-1.00); Potassium, Blood 5.8 mmol/L (3.5-5.5)
[2022-02-19] MEDS ORDERED: SOAANZ20 M1 PO (04:00)
[2022-02-19] MEDS ORDERED: SPIR25 PO (04:01)
--- NOTE | 2022-02-19 06:35 | NUR ---
SHIFT SUMMARY PT IS ALERT AND ORIENTED X4. SHE IS [place]. THERE HAVE BEEN NO ACUTE CHANGES T/O THE NIGHT. VITALS HAVE BEEN STABLE AND IS ON ROOM AIR WITH SATS ABOVE 92%. PT DENIES CHEST PAIN/PRESSURE OR SOB. PT IS BEDREST AND STS THAT SHE IS UNABLE TO WALK SINCE LAST ADMISSION IN BEGINING OF JANUARY AND USES WHEELCHAIR. SHE ALSO HAS CHRONIC PAIN DUE TO MS. SHE HAS A SP CATHETER THAT IS DRAINING TO GRAVITY. CARDIZEM GTT AT 5 WITH HR 100-110 AT THIS TIME. CALL LIGHT IS WITHIN REACH.
[2022-02-19 06:48] LABS: BASOPHILS ABSOLUTE AUTO 0.01 K/mm3 (0.00-0.23); BASOPHILS PERCENT AUTO 0 % (0-2); EOSINOPHILS ABSOLUTE AUTO 0.04 K/mm3 (0.00-0.68); EOSINOPHILS PERCENT AUTO 1 % (0-6); Hematocrit 45.4 % (33.0-51.0); Hemoglobin 15.1 g/dL (11.5-16.0); IMMATURE GRAN ABSOLUTE AUTO 0.03 K/mm3 (0.00-0.10); IMMATURE GRAN PERCENT AUTO 0 % (0-1); LYMPHOCYTES ABSOLUTE AUTO 1.55 K/mm3 (0.84-5.20); LYMPHOCYTES PERCENT AUTO 20 % (21-46); MONOCYTES ABSOLUTE AUTO 0.82 K/mm3 (0.16-1.47); MONOCYTES PERCENT AUTO 11 % (4-13); Mean Corpuscular HGB 30.3 pg (26.0-34.0); Mean Corpuscular HGB Conc 33.3 g/dL (31.5-36.5); Mean Corpuscular Volume 91 fL (80-100); Mean Platelet Volume 11.4 fL (9.1-12.4); NEUTROPHILS ABSOLUTE AUTO 5.22 K/mm3 (1.96-9.15); NEUTROPHILS PERCENT AUTO 68 % (41-73); Platelet Count 206 K/mm3 (150-400); RDW Coefficient Variation 15.9 % (11.7-14.2); RDW Standard Deviation 51.8 fL (35.1-46.3); Red Blood Cell Count 4.98 M/mm3 (3.80-5.20); White Blood Cell Count 7.67 K/mm3 (4.00-11.30)
--- NOTE | 2022-02-19 06:59 | NUR ---
[facility]ART[facility]ORDERS NOT ACCESSIBLE FROM [id number] - 0056 02/18/22
[2022-02-19 07:08] LABS: Bun/Creatinine Ratio 29.6 (12.0-20.0); Calcium, Blood 8.8 mg/dL (8.5-10.1); Creatinine, Blood 0.95 mg/dL (0.40-1.00)
--- NOTE | 2022-02-19 17:24 | NUR ---
SHIFT SUMMARY NO ACUTE CHANGES THIS SHIFT. PT HAS REMAINED ALERT AND ORIENTED WITH PERIODS OF FORGETFULNESS. PT MED FOR BACK PAIN PER EMAR. PT HAS DENIED NAUSEA OR SOB THIS SHIFT. VITAL SIGNS REMAIN STABLE. PT TAKING PO INTAKE WELL. PT TRANSITIONED OFF OF CARDIZEM GTT THIS AFTERNOON. SUPRAPUBIC CATH REMAINS IN PLACE. WILL CONTINUE TO MONITOR AND REPORT OFF TO ONCOMING RN.
--- NOTE | 2022-02-20 00:23 | NUR ---
CALLED DR GIL REGARDING PT'S HR AFIB 120-150'S. ORDER OF CARDIZEM GTT 5MG PER HR, OBTAINED.
--- NOTE | 2022-02-20 05:04 | NUR ---
SHIFT SUMMARY PT IS ALERT AND ORIENTED. BP IS SOFT AND IS ON ROOM AIR WITH SATS ABOVE 92%. PT'S HR HAS INCREASED AND SUSTAINING ABOVE 120'S INTO THE 130-150. PT DENIES CHEST PAIN OR ANY DISCOMFORT. CALLED DR GIL AND CARDIZEM GTT RATE OF 5 WAS RESTARTED. PT IS CURRENTLY NOW ON CARDIZEM GTT RATE OF 15 AND SUSTAINING IN THE 120'S. SHE IS ABLE TO RESPOSITION SELF TO COMFORT. PT HAS SP CATH THAT IS DRAINING TO GRAVITY. CALL LIGHT IS WITHIN REACH.
--- NOTE | 2022-02-20 05:53 | NUR ---
CALLED DR GIL REGARDING PT BEING ON CARDIZEM GTT CURRENTLY AND IF SCHEDUALED CARDIZEM PO AT 0730 SHOULD BE GIVEN. PER DR GIL DO NOT GIVE.
--- NOTE | 2022-02-20 09:21 | NUR ---
UPDATE PRODUCTION ILLUSTRATOR NOTIFIED THIS RN OF A SUSTAINED HEART RATE OF 90-110 BPM, AFIB. DILTIAZEM INFUSION WAS DISCONTINUED, TELEMETRY ALARM PARAMETERS WERE ADJUSTED TO A LOW RATE ALARM OF 50 BPM, AND A HIGH RATE ALARM OF 120 BPM PER THIS RN.
--- NOTE | 2022-02-20 17:03 | NUR ---
SHIFT SUMMARY PT HAS BEEN RESTING IN ROOM FOR THE DAY. PT REQUIRED SIGNIFICANT MOTIVATIONAL COMMUNICATION TO TRANSITION FROM LYING TO SITTING AT THE EDGE OF BED FOR BREAKFAST THIS AM. PT HAS C/O MILD CHRONIC BACK PAIN THAT HAS BEEN MANAGED WITH MEDICATION, REPOSITIONING, AND REST. PT HAS BEEN IN ATRIAL FIBRILLATION RHYTHM WITH A RATE RANGE LOW 80'S THIS AM AND AVERAGING 105 THROUGHOUT THE DAY. BLOOD PRESSURE, RESPIRATORY RATE, SPO2, AND TEMPERATURE HAVE ALL BEEN STABLE. NO CHANGES IN PT CONDITION NOTED.
--- NOTE | 2022-02-21 05:46 | NUR ---
SHIFT SUMMARY ASSUMED CARE OF PT AT 1900. PT IS A/OX4. HEART SOUNDS IRREGULAR. LUNG SOUNDS HAVE FINE CRACKLES T/O. PT HAS A SUPRAPUBIC CATH DRAINING WITH GRAVITY. PT WAS 1P ASSIT TO BSC. PT HR HAS BEEN BETWEEN 110-130. AT AROUND 0500 PT HR MAINTAINED IN THE 140-150. HOSPITALIST NOTIFIED AND REVEIWED CHART, ADDITIONAL LOPRESSOR GIVEN WITH LITTLE RESULTS, RANGING FROM 115-130. PT REMAINS ASYMTOMATIC.
[2022-02-21 07:59] LABS: Albumin, Blood 2.9 g/dL (3.4-5.0); Anion Gap 9 mmol/L (6-16); Blood Urea Nitrogen 21 mg/dL (8-24); CO2, Blood 26 mmol/L (21-32); Calcium, Blood 8.6 mg/dL (8.5-10.1); Chloride, Blood 98 mmol/L (98-108); Creatinine, Blood 0.72 mg/dL (0.40-1.00); Glomerular Filtration Rate 83 (60-); Glucose, Blood 124 mg/dL (70-99); Magnesium, Blood 2.3 mg/dL (1.6-2.4); Phosphorus, Blood 2.8 mg/dL (2.5-4.9); Potassium, Blood 4.3 mmol/L (3.5-5.5); Sodium, Blood 133 mmol/L (136-145)
--- NOTE | 2022-02-21 18:06 | NUR ---
SHIFT SUMMARY PT SPENT A MAJORITY OF THE DAY IN A RECLINER AT BEDSIDE. PT REQUIRED SOME CONVINCING THIS AM TO HAVE BLOOD DRAWN FOR LABS. BOTH PHYSICAL AND OCCUPATIONAL THERAPIES HAD DIFFICULTIES GETTING PT MOTIVATED TO WORK WITH THEM. PT BECAME AGITATED AND IRRITABLE IN THE AFTERNOON, THEY WERE FIXATED ON HAVING A BOWEL MOVEMENT. PT STATED THAT THEY "TAKE MIRALAX EVERYDAY OR HAVE PROBLEMS." PT EXPRESSED FRUSTRATION THAT THEY WOULD NOT BE DISCHARGED TODAY. THIS RN ATTEMPTED TO EDUCATE PT ON CURRENT CONDITION AND THE PROVIDER'S TREATMENT PLAN TO WHICH THE PT STATED "I WILL JUST GO SEE MY DOCTOR AFTER I LEAVE AND THEY WILL FIX IT ALL." HEART RATE CLIMBED THIS MORNING TO A SUSTAINED PEAK OF 140'S AND SLOWLY FELL TO AN AVERAGE OF 105. CURRENTLY RATE IS AVERAGING 120'S.
--- NOTE | 2022-02-22 05:25 | NUR ---
SHIFT SUMMARY ASSUMED CARE OF PT AT 1900. PT IS A/OX4. HEART SOUNDS IRREGULAR. TELE SHOWS AFIB. PT HR REMAINED 100-120 T/O THE NIGHT. NO NEW COMPLAINTS. LUNG SOUNDS HAVE FINE CRACKLES AT BASES. SUPRAPUBIC CATH DRAINING CLEAR YELLOW URINE. PT IS READY TO GO HOME AND STATES THAT SHE IS LEAVING TODAY.
[2022-02-22] MEDS ORDERED: BUME1 PO (09:50)
[2022-02-22] MEDS ORDERED: METO25ER PO (09:50)
[2022-02-22] MEDS ORDERED: DILTIAZEM ER420 MG PO (09:51)
== END 2022-02-22 13:05 | disposition home or self-care (01) | DRG 291 ==
LOC: ER 14:37 → ERHOLD 14:38 → PCU 14:38
PROVIDERS: Family Medicine; Student in an Organized Health Care Education/Training Program; ADMIT Family Medicine
DX: I11.0 Hypertensive heart disease with heart failure (principal); I50.33 Acute on chronic diastolic (congestive) heart failure; I48.20 Chronic atrial fibrillation, unspecified; E87.1 Hypo-osmolality and hyponatremia; M54.9 Dorsalgia, unspecified; G89.29 Other chronic pain; Z96.0 Presence of urogenital implants; E61.1 Iron deficiency; M81.0 Age-related osteoporosis without current pathological fracture; G35 Multiple sclerosis; G25.81 Restless legs syndrome; E55.9 Vitamin D deficiency, unspecified; I08.1 Rheumatic disorders of both mitral and tricuspid valves; I42.9 Cardiomyopathy, unspecified; E87.5 Hyperkalemia; R11.2 Nausea with vomiting, unspecified; Z87.891 Personal history of nicotine dependence; Z98.890 Other specified postprocedural states; Z98.49 Cataract extraction status, unspecified eye; Z88.1 Allergy status to other antibiotic agents; Z88.8 Allergy status to other drugs, medicaments and biological substances; Z88.2 Allergy status to sulfonamides
CPT/HCPCS: 36415; 71045; 80048; 80053; 80069; 83735; 83880; 84132; 84443; 84484; 85025; 93005; 93010; 94760; 96374; 97110; 97162; 97166; 97530; 99285-25; A9270; G0378; J1940; J7030

== ENCOUNTER 2022-03-13 11:46 | Inpatient (IN) | payer MEDICARE, OTHER ==
[~2022-03-13] VITALS: Ht 167.6 cm; Wt 76.0 kg
[~2022-03-13 11:46] MED LIST changes: +BUME1 PO; +DILTIAZEM 24HR120 M4 PO; +METO50ER PO; +SOAANZ20 M1 PO
[2022-03-13 12:14] LABS: BASOPHILS ABSOLUTE AUTO 0.02 K/mm3 (0.00-0.23); BASOPHILS PERCENT AUTO 0 % (0-2); EOSINOPHILS ABSOLUTE AUTO 0.01 K/mm3 (0.00-0.68); EOSINOPHILS PERCENT AUTO 0 % (0-6); Hematocrit 47.5 % (33.0-51.0); Hemoglobin 15.8 g/dL (11.5-16.0); IMMATURE GRAN ABSOLUTE AUTO 0.02 K/mm3 (0.00-0.10); IMMATURE GRAN PERCENT AUTO 0 % (0-1); LYMPHOCYTES ABSOLUTE AUTO 1.28 K/mm3 (0.84-5.20); LYMPHOCYTES PERCENT AUTO 16 % (21-46); MONOCYTES ABSOLUTE AUTO 0.91 K/mm3 (0.16-1.47); MONOCYTES PERCENT AUTO 12 % (4-13); Mean Corpuscular HGB 30.4 pg (26.0-34.0); Mean Corpuscular HGB Conc 33.3 g/dL (31.5-36.5); Mean Corpuscular Volume 91 fL (80-100); Mean Platelet Volume 11.3 fL (9.1-12.4); NEUTROPHILS ABSOLUTE AUTO 5.63 K/mm3 (1.96-9.15); NEUTROPHILS PERCENT AUTO 71 % (41-73); Platelet Count 218 K/mm3 (150-400); RDW Coefficient Variation 15.9 % (11.7-14.2); RDW Standard Deviation 52.7 fL (35.1-46.3); White Blood Cell Count 7.87 K/mm3 (4.00-11.30)
[2022-03-13 12:42] LABS: Albumin, Blood 3.1 g/dL (3.4-5.0); Bilirubin, Total 0.9 mg/dL (0.1-1.0); Bun/Creatinine Ratio 35.5 (12.0-20.0); Calcium, Blood 8.9 mg/dL (8.5-10.1); Creatinine, Blood 0.85 mg/dL (0.40-1.00); Globulin, Blood 3.1 g/dL (2.2-4.0); Potassium, Blood 3.6 mmol/L (3.5-5.5); Total Protein, Blood 6.2 g/dL (6.4-8.2)
[2022-03-13] MEDS ORDERED: SPIR25 PO (16:41)
[2022-03-14 04:12] LABS: BASOPHILS ABSOLUTE AUTO 0.01 K/mm3 (0.00-0.23); BASOPHILS PERCENT AUTO 0 % (0-2); EOSINOPHILS ABSOLUTE AUTO 0.02 K/mm3 (0.00-0.68); EOSINOPHILS PERCENT AUTO 0 % (0-6); Hematocrit 47.3 % (33.0-51.0); Hemoglobin 15.7 g/dL (11.5-16.0); IMMATURE GRAN ABSOLUTE AUTO 0.01 K/mm3 (0.00-0.10); IMMATURE GRAN PERCENT AUTO 0 % (0-1); LYMPHOCYTES ABSOLUTE AUTO 1.27 K/mm3 (0.84-5.20); LYMPHOCYTES PERCENT AUTO 18 % (21-46); MONOCYTES ABSOLUTE AUTO 0.91 K/mm3 (0.16-1.47); MONOCYTES PERCENT AUTO 13 % (4-13); Mean Corpuscular HGB 29.8 pg (26.0-34.0); Mean Corpuscular HGB Conc 33.2 g/dL (31.5-36.5); Mean Corpuscular Volume 90 fL (80-100); Mean Platelet Volume 10.7 fL (9.1-12.4); NEUTROPHILS ABSOLUTE AUTO 4.97 K/mm3 (1.96-9.15); NEUTROPHILS PERCENT AUTO 69 % (41-73); Platelet Count 188 K/mm3 (150-400); RDW Coefficient Variation 15.7 % (11.7-14.2); RDW Standard Deviation 51.3 fL (35.1-46.3); Red Blood Cell Count 5.26 M/mm3 (3.80-5.20); White Blood Cell Count 7.19 K/mm3 (4.00-11.30)
[2022-03-14 04:35] LABS: Albumin, Blood 3.2 g/dL (3.4-5.0); Albumin/Globulin Ratio 1.2 (0.8-1.8); Bun/Creatinine Ratio 36.2 (12.0-20.0); Calcium, Blood 8.6 mg/dL (8.5-10.1); Creatinine, Blood 0.89 mg/dL (0.40-1.00); Globulin, Blood 2.6 g/dL (2.2-4.0); Potassium, Blood 4.2 mmol/L (3.5-5.5); Total Protein, Blood 5.8 g/dL (6.4-8.2)
--- NOTE | 2022-03-14 06:37 | NUR ---
SHIFT SUMMARY ER ADMIT, ARRIVAL TO U @ 5396. PT ALERT AND ORIENTED X4. HR AFIB 100-120'S . AFEBRILE. BP STABLE. ON RA SATS OVER 94%. SUPRAPUBIC CATH IN PLACE DRAINING DARK YELLOW URINE TO GRAVITY, 765 OUT. BACK PAIN, MEIDCATED PER EMAR. PT THIS AM REPORTS FEELING "MUCH BETTER". CARDIZEM GTT RUNNING AT 5ML/HR. ASLEEP WITH CALL ALARM AT SIDE, WILL CONTINUE TO MONITOR UNTIL REPORT GIVEN TO DAYSHIFT RN
--- NOTE | 2022-03-14 17:54 | NUR ---
SHIFT SUMMARY: PT A&Ox4, NEW BATTERIES IN HER HEARING AIDS. AFIB 90s-120 ON MONITOR, CARDIZEM GTT CONTINUES AT 5 ML/HR AND PO ORDERS PLACED W/FIRST DOSE GIVEN TODAY, DR RIGGINS UPDATED ON PT STATUS THIS AFTERNOON VIA TELEPHONE W/METOPROLOL DOSE INCREASE MADE. O2 SATS MAINTAINED >93% ON RA. SP CATHETER PATENT, DRAINING TO GRAVITY. EDEMA TO BLE W/OPEN AND CLOSED BLISTERS, BLE CLEANED AND REDRESSED, WOUND CARE CONSULTATION PLACED. WILL CONTINUE TO MONITOR AND TREAT ACCORDINGLY UNTIL CHANGE OF SHIFT.
--- NOTE | 2022-03-14 18:47 | NUR ---
Wound care completed. Weeping open wounds of the bilateral lower legs were covered with xeroform dressings to prevent adhesion to the absorbent ABD pads which were applied on top, secured with MT spandage. Pt states she does not have any significant pain in her legs most of the time.
[2022-03-15 04:45] LABS: BASOPHILS ABSOLUTE AUTO 0.01 K/mm3 (0.00-0.23); BASOPHILS PERCENT AUTO 0 % (0-2); EOSINOPHILS ABSOLUTE AUTO 0.02 K/mm3 (0.00-0.68); EOSINOPHILS PERCENT AUTO 0 % (0-6); Hematocrit 45.3 % (33.0-51.0); Hemoglobin 15.2 g/dL (11.5-16.0); IMMATURE GRAN ABSOLUTE AUTO 0.04 K/mm3 (0.00-0.10); IMMATURE GRAN PERCENT AUTO 0 % (0-1); LYMPHOCYTES ABSOLUTE AUTO 1.02 K/mm3 (0.84-5.20); LYMPHOCYTES PERCENT AUTO 10 % (21-46); MONOCYTES ABSOLUTE AUTO 1.06 K/mm3 (0.16-1.47); MONOCYTES PERCENT AUTO 10 % (4-13); Mean Corpuscular HGB 30.1 pg (26.0-34.0); Mean Corpuscular HGB Conc 33.6 g/dL (31.5-36.5); Mean Corpuscular Volume 90 fL (80-100); Mean Platelet Volume 10.6 fL (9.1-12.4); NEUTROPHILS ABSOLUTE AUTO 8.18 K/mm3 (1.96-9.15); NEUTROPHILS PERCENT AUTO 79 % (41-73); Platelet Count 178 K/mm3 (150-400); RDW Coefficient Variation 15.9 % (11.7-14.2); RDW Standard Deviation 51.3 fL (35.1-46.3); Red Blood Cell Count 5.05 M/mm3 (3.80-5.20); White Blood Cell Count 10.33 K/mm3 (4.00-11.30)
[2022-03-15 05:05] LABS: Albumin, Blood 3.1 g/dL (3.4-5.0); Albumin/Globulin Ratio 1.1 (0.8-1.8); Bilirubin, Total 1.5 mg/dL (0.1-1.0); Bun/Creatinine Ratio 35.5 (12.0-20.0); Calcium, Blood 8.7 mg/dL (8.5-10.1); Creatinine, Blood 0.79 mg/dL (0.40-1.00); Globulin, Blood 2.7 g/dL (2.2-4.0); Potassium, Blood 3.7 mmol/L (3.5-5.5); Total Protein, Blood 5.8 g/dL (6.4-8.2)
--- NOTE | 2022-03-15 06:06 | NUR ---
SHIFT SUMMARY PT ALERT AND ORIENTED X4. CALLS APPROPRIATELY, COOPERATIVE TO CARE. BP STABLE. ON RA SATS OVER 91%. BP STABLE. AFEBRILE. HR AFIB 90-110'S. CARDIZEM GTT INFUSING AT 5ML/HR. SUPRAPUBIC CATH DRAINING DARK YELLOW URINE TO GRAVITY, 950 OUT. IN BED SLEEPING WITH CALL ALARM AT SIDE, WILL CONTINUE TO MONITOR UNTIL REPORT GIVEN TO DAYSHIFT RN
--- NOTE | 2022-03-15 07:50 | NUR ---
ASSUMPTION OF CARE LUPILLO LAGUNA AND ELIA LAGUNA ASSUMED CARE OF PATIENT AT 0700. REPORT TAKEN FROM DEONTE LAGUNA. PATIENT CONTINUES TO REMAIN IN AFIB WITH HR RANGING FROM 100-110S AT THIS TIME. BP STABLE. PATIENT DENIES CHEST PAIN. REPORTS BACK PAIN. MEDICATING PER EMAR. DRESSINGS ON BLE ARE C/D/I. WOUND CARE NURSE SCHEDULED TO COME TODAY AND RE-DRESS/ASSESS WOUNDS. BED IN LOWEST POSITION AND CALL LIGHT WITHIN REACH.
--- NOTE | 2022-03-15 13:39 | NUR ---
VICKIE WRAP APPLIED TO LEGS BILAT FOR COMPRESSION PER DR NOEL'S ORDER. PT BACK TO BEDSIDE CHAIR, LEGS ELEVATED ON PILLOWS, DRESSINGS TO LEGS BILAT REMAIN CLEAN DRY AND INTACT
--- NOTE | 2022-03-15 17:42 | NUR ---
SHIFT SUMMARY PATIENT IS A&O X4. AFIB ON THE MONITOR WITH HR IN THE 90S. NO COMPLAINTS OF CHEST PAIN. ALL VITALS STABLE. MEDICATING PER EMAR FOR BACK PAIN. CARDIZEM HAS BEEN STOPPED AND PATIENT CONTINUES TO BE MONITORED FOR FURTHER NEED OF CARDIZEM GTT. NO ACUTE CHANGES DURING THIS SHIFT. PIVOT TRANSFER WITH 1 PERSON. SP CATHETER DRAINING TO GRAVITY. PATIENT CURRENTLY IN CHAIR WITH CALL LIGHT IN REACH AND AT BEDSIDE.
--- NOTE | 2022-03-16 05:55 | NUR ---
SHIFT SUMMARY NO ACUTE EVENTS OVERNIGHT. PT ALERT AND ORIENTED X4. AFEBRILE. HR 90-100'S. BP STABLE. ON RA SATS OVER 93%. C/O BACK PAIN, MEDICATED PER EMAR. SUPRAPUBIC CATH DRAINING TO GRAVITY. OFF CARDIZEM GTT ALL NIGHT. IN BED WITH CALL ALARM AT SIDE, WILL CONTINUE TO MONITOR UNTIL REPORT GIVEN TO DAYSHIFT RN
[2022-03-16 07:44] LABS: BASOPHILS ABSOLUTE AUTO 0.01 K/mm3 (0.00-0.23); BASOPHILS PERCENT AUTO 0 % (0-2); EOSINOPHILS ABSOLUTE AUTO 0.03 K/mm3 (0.00-0.68); EOSINOPHILS PERCENT AUTO 0 % (0-6); Hematocrit 46.3 % (33.0-51.0); Hemoglobin 15.3 g/dL (11.5-16.0); IMMATURE GRAN ABSOLUTE AUTO 0.01 K/mm3 (0.00-0.10); IMMATURE GRAN PERCENT AUTO 0 % (0-1); LYMPHOCYTES ABSOLUTE AUTO 1.09 K/mm3 (0.84-5.20); LYMPHOCYTES PERCENT AUTO 15 % (21-46); MONOCYTES ABSOLUTE AUTO 0.82 K/mm3 (0.16-1.47); MONOCYTES PERCENT AUTO 12 % (4-13); Mean Corpuscular HGB 29.9 pg (26.0-34.0); Mean Corpuscular Volume 91 fL (80-100); Mean Platelet Volume 10.8 fL (9.1-12.4); NEUTROPHILS ABSOLUTE AUTO 5.19 K/mm3 (1.96-9.15); NEUTROPHILS PERCENT AUTO 73 % (41-73); Platelet Count 183 K/mm3 (150-400); RDW Coefficient Variation 15.9 % (11.7-14.2); RDW Standard Deviation 52.8 fL (35.1-46.3); Red Blood Cell Count 5.11 M/mm3 (3.80-5.20); White Blood Cell Count 7.15 K/mm3 (4.00-11.30)
[2022-03-16 08:05] LABS: Albumin, Blood 2.9 g/dL (3.4-5.0); Bilirubin, Total 1.6 mg/dL (0.1-1.0); Bun/Creatinine Ratio 29.6 (12.0-20.0); Calcium, Blood 8.6 mg/dL (8.5-10.1); Creatinine, Blood 0.88 mg/dL (0.40-1.00); Globulin, Blood 2.9 g/dL (2.2-4.0); Magnesium, Blood 2.1 mg/dL (1.6-2.4); Potassium, Blood 3.8 mmol/L (3.5-5.5); Total Protein, Blood 5.8 g/dL (6.4-8.2)
--- NOTE | 2022-03-16 08:05 | NUR ---
ASSUMPTION OF CARE LUPILLO LAGUNA AND ELIA LAGUNA ASSUMED CARE OF PATIENT AT 0700. REPORT TAKEN FROM DEONTE LAGUNA. NO REPORTED ACUTE EVENTS DURING THE NIGHT. PATIENT UP IN CHAIR WITH BREAKFAST. VITALS STABLE. REINFORCED EDUCATION REGARDING CARDIAC DIET AND FLUID RESTRICTION. CALL LIGHT WITHIN REACH
--- NOTE | 2022-03-16 16:46 | NUR ---
SHIFT SUMMARY PATIENT IS A&O X4 WITH OCCASIONAL FORGETFULNESS OF EDUCATION AND STAFF. PATIENT CALLS APPROPRIATELY FOR HELP AND IS CALM/COOPERATIVE WITH CARE. PATIENT CONTINUES TO BE IN AFIB ON THE MONITOR BUT RATE HAS BEEN MAINTAINING IN THE 90S WITH PO MEDICATION. PATIENT CHANGED TO MEDICAL WITH TELEMETRY STATUS THIS SHIFT. BP STABLE WITH SBP 100-110S. WOUND CARE DONE TO BLE PER WOUND CARE ORDER. EDEMA PERSISTS IN BLE DESPITE DIURETIC MEDICATIONS. PATIENT EDUCATED ON FLUID RESTRICTION OF 1200MLS. PATIENT IS RESISTENT OF FLUID RESTRICTION OCCASIONALLY BUT AGREES WITH TEACHING AND REMINDERS OF WHY WE ARE RESTRICTING FLUID. SP CATHETER IN PLACE DRAINING TO GRAVITY. CATHETER BAG CHANGED THIS SHIFT. BACK PAIN TREATED PER EMAR AND WITH NONPHARMACOLOGIC INTERVENTIONS. PATIENT UP IN RECLINER WITH AT BEDSIDE. CALL LIGHT IN REACH WITHIN LEGS ELEVATED. WILL CONTINUE TO MONITOR UNTIL SHIFT CHANGE AT 1900.
--- NOTE | 2022-03-16 18:01 | NUR ---
PATIENT UPDATE ORDER FROM MD TO CHANGE SP CATHETER. PATIENT STATES THAT SHE HAS AN ALLERGY TO OUR CATHETERS AND THAT SHE HAS SPECIAL ONES AT HOME THAT THE CAN BRING TOMORROW. PLAN TO CHANGE TOMORROW 03/17 DURING DAY SHIFT.
--- NOTE | 2022-03-17 02:46 | NUR ---
REPORT GIVEN TO COLBY ON MED FLOOR. PT GOING INTO ROOM 312 WITH ALL BELONGINGS.
[2022-03-17 05:06] LABS: Bun/Creatinine Ratio 37.4 (12.0-20.0); Calcium, Blood 8.6 mg/dL (8.5-10.1); Creatinine, Blood 0.86 mg/dL (0.40-1.00); Potassium, Blood 3.9 mmol/L (3.5-5.5)
--- NOTE | 2022-03-17 05:57 | NUR ---
SHIFT SUMMARY PATIENT ARRIVED TO ROOM 312 AT 0312. SHE HAD NO COMPLAINTS OF PAIN OR SHORTNESS OF BREATH. NO ACUTE ISSUES NOTED. CALL LIGHT WITHIN REACH. REPORT GIVEN TO ONCOMING RN.
--- NOTE | 2022-03-17 06:05 | NUR ---
CALLED SPOUSE TO NOTIFY THAT SPOUSE WAS MOVED TO MEDICAL FLOOR (NO PT INFO WAS LEFT ON VOICEMAIL) AND TO PLEASE CALL NUMBER FOR ADDITIONAL INFORMATION.
--- NOTE | 2022-03-17 18:35 | NUR ---
PATIENT IS ALERT AND ORIENTED AND COOPERATIVE WITH CARE. DR. IQBAL CHANGED THE DRESSING ON HER BLE'S TWICE THIS SHIFT. HE WILL BE BACK IN THE MORNING TO CHANGE THE DRESSINGS ONCE MORE. HAYNES IS DRAINING TO GRAVITY. C/O BACK PAIN, MANAGED PER EMAR. PATIENT SAT UP IN THE RECLINER SINCE THIS MORNING AND SHE JUST NOW TRANSFERRED BACK TO BED. PATIENT'S SON AND WERE AT THE BEDSIDE TODAY. WILL CONTINUE TO MONITOR
--- NOTE | 2022-03-18 06:30 | NUR ---
SHIFT SUMMARY PATIENT ALERT AND ORIENTED. MEDICATED PER EMAR FOR PAIN. NO ACUTE ISSUES NOTED OVERNIGHT. CALL LIGHT WITHIN REACH. REPORT GIVEN TO ONCOMING RN.
[2022-03-18] MEDS ORDERED: BUME1 PO (11:00)
[2022-03-18] MEDS ORDERED: GUAI600T33 PO (11:01)
[2022-03-18] MEDS ORDERED: METO2.5 PO (11:02)
[2022-03-18] MEDS ORDERED: POTCHL20ER PO (11:03)
--- NOTE | 2022-03-18 13:23 | NUR ---
DISCHARGE PT DISCHARGED TO HOME. IVS REMOVED AND DISCHARGE INFORMATION GONE OVER AND PT NOTIFIED OF CWOULD CARE AND FOLLOW UP WITH . PT DISCHARGE TAT 7119
== END 2022-03-18 13:28 | disposition home health service (06) | DRG 291 ==
LOC: ER 11:46 → PCU 20:02 → MEDS 03-17 03:08
PROVIDERS: Hospitalist; Physician Assistant; ADMIT Internal Medicine
DX: I11.0 Hypertensive heart disease with heart failure (principal); I50.33 Acute on chronic diastolic (congestive) heart failure; E87.1 Hypo-osmolality and hyponatremia; J91.8 Pleural effusion in other conditions classified elsewhere; I48.20 Chronic atrial fibrillation, unspecified; M81.0 Age-related osteoporosis without current pathological fracture; G35 Multiple sclerosis; N31.9 Neuromuscular dysfunction of bladder, unspecified; G89.29 Other chronic pain; M54.9 Dorsalgia, unspecified; Z98.890 Other specified postprocedural states; Z87.891 Personal history of nicotine dependence; Z88.1 Allergy status to other antibiotic agents; Z88.2 Allergy status to sulfonamides; Z88.8 Allergy status to other drugs, medicaments and biological substances; Z79.899 Other long term (current) drug therapy
CPT/HCPCS: 36415; 71046; 80048; 80053; 83735; 83880; 84100; 84484; 85025; 93005; 93010; 96365; 96366; 96375; 99285-25; A9270; J1650; J1940; J3480; J7030; J7050

== ENCOUNTER 2022-04-30 18:16 | Inpatient (IN) | payer MEDICARE, OTHER ==
[~2022-04-30] VITALS: Ht 167.6 cm; Wt 61.7 kg
[~2022-04-30 18:16] MED LIST changes: +GUAI600T33 PO; +METO2.5 PO; +POTCHL20ER PO
[2022-04-30 19:27] LABS: BASOPHILS ABSOLUTE AUTO 0.07 K/mm3 (0.00-0.23); BASOPHILS PERCENT AUTO 0 % (0-2); EOSINOPHILS ABSOLUTE AUTO 0.03 K/mm3 (0.00-0.68); EOSINOPHILS PERCENT AUTO 0 % (0-6); Hematocrit 46.6 % (33.0-51.0); Hemoglobin 16.1 g/dL (11.5-16.0); IMMATURE GRAN ABSOLUTE AUTO 0.13 K/mm3 (0.00-0.10); IMMATURE GRAN PERCENT AUTO 1 % (0-1); LYMPHOCYTES ABSOLUTE AUTO 0.51 K/mm3 (0.84-5.20); LYMPHOCYTES PERCENT AUTO 3 % (21-46); MONOCYTES PERCENT AUTO 6 % (4-13); Mean Corpuscular HGB 30.5 pg (26.0-34.0); Mean Corpuscular HGB Conc 34.5 g/dL (31.5-36.5); Mean Corpuscular Volume 88 fL (80-100); Mean Platelet Volume 10.1 fL (9.1-12.4); NEUTROPHILS ABSOLUTE AUTO 15.32 K/mm3 (1.96-9.15); NEUTROPHILS PERCENT AUTO 90 % (41-73); Platelet Count 250 K/mm3 (150-400); RDW Coefficient Variation 15.4 % (11.7-14.2); RDW Standard Deviation 50.2 fL (35.1-46.3); Red Blood Cell Count 5.28 M/mm3 (3.80-5.20); White Blood Cell Count 17.06 K/mm3 (4.00-11.30)
[2022-04-30 19:45] LABS: Albumin, Blood 2.2 g/dL (3.4-5.0); Albumin/Globulin Ratio 0.6 (0.8-1.8); Bilirubin, Total 1.3 mg/dL (0.1-1.0); Bun/Creatinine Ratio 57.9 (12.0-20.0); Calcium, Blood 8.4 mg/dL (8.5-10.1); Creatinine, Blood 0.67 mg/dL (0.40-1.00); Potassium, Blood 5.7 mmol/L (3.5-5.5); Total Protein, Blood 6.2 g/dL (6.4-8.2)
[2022-04-30 19:51] LABS: Influenza A, PCR NEGATIVE (NEGATIVE); Influenza B, PCR NEGATIVE (NEGATIVE); Resp Syncytial Virus, PCR NEGATIVE (NEGATIVE); SARS-Cov-2 (COVID-19) PCR, MMC NEGATIVE (NEGATIVE)
[2022-04-30] MEDS ORDERED: Acetaminophen650 M1 PO (23:13)
[2022-05-01 01:14] LABS: Source, Urine Suprapubic Cath
[2022-05-01 01:17] LABS: Appearance, Urine Hazy (Clear); Bilirubin, Urine Neg (Neg); Blood, Urine 4+ (Neg); Color, Urine Yellow (P-Yellow); Glucose Qualitative, Urine Neg (Neg); Ketones, Urine Neg (Neg); Leukocyte Esterase, Urine 3+ (Neg); Nitrite, Urine Neg (Neg); Protein, Urine 2+ (Neg); Urobilinogen, Urine 2+ (Normal)
[2022-05-01 01:25] LABS: Bacteria Many /hpf; White Blood Cells, Urine 25-50 /hpf (0-5)
[2022-05-01 01:26] LABS: Squamous Epithelial Cells Rare /hpf (Few)
[2022-05-01 02:38] LABS: BASOPHILS ABSOLUTE AUTO 0.03 K/mm3 (0.00-0.23); BASOPHILS PERCENT AUTO 0 % (0-2); EOSINOPHILS ABSOLUTE AUTO 0.01 K/mm3 (0.00-0.68); EOSINOPHILS PERCENT AUTO 0 % (0-6); Hematocrit 38.8 % (33.0-51.0); Hemoglobin 13.4 g/dL (11.5-16.0); IMMATURE GRAN ABSOLUTE AUTO 0.09 K/mm3 (0.00-0.10); IMMATURE GRAN PERCENT AUTO 1 % (0-1); LYMPHOCYTES ABSOLUTE AUTO 0.75 K/mm3 (0.84-5.20); LYMPHOCYTES PERCENT AUTO 5 % (21-46); MONOCYTES ABSOLUTE AUTO 1.73 K/mm3 (0.16-1.47); MONOCYTES PERCENT AUTO 11 % (4-13); Mean Corpuscular HGB 30.3 pg (26.0-34.0); Mean Corpuscular HGB Conc 34.5 g/dL (31.5-36.5); Mean Corpuscular Volume 88 fL (80-100); Mean Platelet Volume 10.4 fL (9.1-12.4); NEUTROPHILS ABSOLUTE AUTO 12.82 K/mm3 (1.96-9.15); NEUTROPHILS PERCENT AUTO 83 % (41-73); Platelet Count 219 K/mm3 (150-400); RDW Coefficient Variation 15.1 % (11.7-14.2); RDW Standard Deviation 48.6 fL (35.1-46.3); Red Blood Cell Count 4.42 M/mm3 (3.80-5.20); White Blood Cell Count 15.43 K/mm3 (4.00-11.30)
[2022-05-01 03:01] LABS: Albumin, Blood 2.2 g/dL (3.4-5.0); Albumin/Globulin Ratio 0.7 (0.8-1.8); Bilirubin, Total 1.2 mg/dL (0.1-1.0); Bun/Creatinine Ratio 60.7 (12.0-20.0); Calcium, Blood 8.6 mg/dL (8.5-10.1); Creatinine, Blood 0.64 mg/dL (0.40-1.00); Globulin, Blood 3.1 g/dL (2.2-4.0); Potassium, Blood 4.9 mmol/L (3.5-5.5); Total Protein, Blood 5.3 g/dL (6.4-8.2)
[2022-05-01 05:30] LABS: Digoxin (Lanoxin) 1.89 ug/mL (0.80-2.00)
--- NOTE | 2022-05-01 07:31 | NUR ---
SHIFT SUMMARY PT AOX4 WHEN ARRIVED TO ROOM WITH FROM ER, PT DISPLAYS SOME ISSUES WITH SHORT TERM MEMORY T/O SHIFT AND PT APPEARS OUT OF PROPORTION WITH SMALL MOVEMENTS. PT APPEARS AT EASE AND QUIET WHEN RESTING IN BED UNTIL MOVED BY STAFF. PT'S HR TRENDED 100'S-140'S WITH OCCASIONAL EPISODES OF TOUCHING 150-160 BPM WHEN AGITATED R/T STAFF ATTEMPTING IV OR REPOSITIONING AND PAIN. PT HAD RELIEF FOLLOWING DOSE OF 50 MCG OF FENTANYL GIVEN AND TORADOL 30 MG. PT BECAME HOT AND DIAPHORETIC UNDER BLANKETS IN EARLY AM OF SHIFT. TEMP BACK DOWN FROM 99.1 F THIS AM TO 98.5 F. PT HYPOTENSIVE THROUGHOUT SHIFT ON ARRIVAL FROM ER, ALBUMIN ADMIN PER ORDERS AND X2 250 ML BOLUSES. PRESSURE MAINTAINS WITH MAP >60 FOLLOWING 2ND BOLUS. PT HAS LITTLE URINE OUTPUT THROUGHOUT SHIFT FROM SUPRAPUBIC CATHETER.
--- NOTE | 2022-05-01 17:50 | NUR ---
Shift Summary Pt alert, oriented x3, forgetful at times. Pt resting in bed, repositioned for comfort. Pt c/o pain "everywhere" t/o shift, medciated per emar. PT denies chest pain/pressure, sob, nausea, dizziness, or numb/tingling. Pt right knee appears red, slight more swollen and warm than the left side, notified MD BENI at bedside to assess patient this am. Tele afib this am 110-120's, this afternoon 120-150, touched 170 at one point, bp soft, notified Dr Richmond, attempted to give patient digoxin this am, pt refused, stating it made her dizzy the last time she was admitted and does not want to take it, MD at bedside discussed the benefits/risks, patient continues to refuse; new orders for cardizem gtt, started on 5mg/hr, titrated to 15mg/hr this evening, continues to be soft but stable. Spo2 >90% on ra, breathing even and unlabored, ls clear, dim t/o, occasional crackle to bases. Abd soft, nontender with normoactiver bt t/o. Ble edema noted. Other vss. No other acute changes noted. Will continue to monitor.
--- NOTE | 2022-05-01 21:51 | NUR ---
CALL TO OF PT CAROLYN THIS RN CALLS PT'S CAROLYN, NOTIFIES HIM OF PT REFUSING TO TAKE PO MEDS, PRAYING AND BEGGING FOR STAFF TO STOP BOTHERING HER. NOTIFIED OF CONCERN FOR PT'S O2 SATS WITH PAIN MEDICINE AND PT REFUSING O2. CAROLYN SAYS TO FOCUS ON PT'S PAIN AND STOP OTHER INTERVENTIONS BECAUSE HE KNOWS SHE WANTS TO . NOTIFIED OF PT STATING SHE WANTS TO AND IS IN CONSIDERABLE AMOUNT OF PAIN. ASKS THIS RN TO KEEP PT COMFORTABLE.
--- NOTE | 2022-05-01 22:08 | NUR ---
CALL TO PROVIDER THIS RN CALLS DR VALLADARES UPDATES ON PT CONDITION, NOTIFIED OF PT AND HUSBANDS WISHES TO KEEP PT COMFORTABLE AND CONTROL PAIN. REFERRED TO ATTENDING DR DEE. THIS RN CALLS DR DEE, NOTIFIED OF PT CRYING OUT NEEDING MORE FOR PAIN, 'S WISHES TO KEEP PT COMFORTABLE AT THIS TIME. THIS RN ASKS IF COMFORT CARE CAN BE INITIATED FOR PT DISCUSSED WITH SPOUSE RAY OVER PHONE. DR DEE TO REVIEW CHART TO DETERMINE POSSIBLE COMFORT CARE ORDERS.
--- NOTE | 2022-05-01 22:31 | NUR ---
DR DEE CALLS SPOUSE OF PT, SPEAKS TO HIM ON THE PHONE REGARDING COMFORT CARE. ORDERS PLACED FOR COMFORT CARE.
--- NOTE | 2022-05-01 22:43 | NUR ---
PHONE CALL WITH SON ORALIA THIS RN RECEIVES CALL FROM SON ORALIA, DISCUSSED COMFORT CARE IN DEPTH. ORALIA VERBALIZES UNDERSTANDING AND IS AGREEABLE TO PLAN AND HAS DISCUSSED WITH PT'S CAROLYN (HIS FATHER). STATES HE WOULD ALSO LIKE TO SPEAK TO STAFF IF ANYTHING SHOULD CHANGE IN NIGHT. ORALIA IS NOT IN TOWN AND IS IN [place], WILL NOT BE IN TOWN UNTIL SUNDAY.
--- NOTE | 2022-05-02 | NUR ---
PT SLEEPING QUIETLY, BREATHING SHALLOW. OCCASIONALLY MOVES IN SLEEP. NO MOANING AT THIS TIME.
--- NOTE | 2022-05-02 06:32 | NUR ---
SHIFT SUMMARY PT DIFFICULT TO AROUSE FROM SLEEP AT START OF SHIFT. BECAME AGITATED AND CRYING OUT WHEN REPOSITIONING AT START OF SHIFT. THIS RN ATTEMPTED TO ADMIN PO MEDS, PT AGITATED AND REFUSING TO SWALLOW PILLS FOR THIS RN. DRIVABILITY TECHNICIAN BRYSON ALSO ATTEMPTED AND PT SPIT OUT PUDDING. THIS RN ATTEMPTED TO REORIENT PT SEVERAL TIMES, PT CRIES OUT TO BE LEFT ALONE C/O SEVERE PAIN, YELLS AT THIS RN FOR NOT CONTROLLING HER PAIN STATES MEDICINES THAT SHE IS GIVEN DO NOT WORK. PT ASKS MULTIPLE TIMES TO BE LET GO. STATES SHE DOES NOT WANT TO BE BOTHERED AND WANTS TO GO TO SLEEP. THIS RN CALLS AFTER DISCUSSING FURTHER WITH DRIVABILITY TECHNICIAN. WANTS STAFF TO DO EVERYTHING THEY CAN TO KEEP PT COMFORTABLE. THIS RN HAS EXTENSIVE CONVERSATION WITH PT'S REGARDING MEDS BEING ADMINISTERED AND COMFORT CARE R/T PT ONLY RECEIVING PAIN MEDICINES. OF PT CAROLYN VERBALIZES UNDERSTANDING AND ASKS THIS RN TO KEEP HER COMFORTABLE. THIS RN CALLS DR DEE, DR DEE INITIATES COMFORT CARE ORDERS AFTER DISCUSSING WITH OVER THE PHONE. THIS RN ALSO SPOKE WITH SON ORALIA WHO CALLED IN FOR AN UPDATE (SEE PRIOR NOTES). PT AGITATED AND YELLING OUT. RELIEF FOLLOWING DOSE OF ROXANOL PER ORDER. DILTIAZEM GTT DISCONTINUED. PT BECOMES AGITATED AND YELLS AT THIS RN WHEN THIS RN ATTEMPTS TO REPOSITION PT IN BED. PT LEFT TO REST. APPEARS TO SLEEP RESTFULLY AT TIMES UNTIL THIS RN TO BEDSIDE TO ASSESS PT'S COMFORT AND ATTEMPT TO REPOSITION. PT BECOMES EXTREMELY AGITATED WHEN ATTEMPTED TO MOVE, PT OCCASIONALLY YELLS OUT, STATES "I DON'T WANT ANYMORE MEDICINE IT'S NOT WORKING!" THIS RN ATTEMPTS TO REORIENT PT TO SITUATION AND PAIN MEDS ATTEMPTING TO BE GIVEN. PT TELLS THIS RN TO CALL HER AND TELL HIM SHE WANTS ALL SUPPORT REMOVED AND TO LET HER GO. THIS RN ATTEMPTED TO REORIENT PT TO COMFORT CARE STATUS. PT IS UNABLE TO FOLLOW SITUATION. BECOMES AGITATED WITH THIS RN. MEDICATED AGAIN WITH SECOND DOSE OF ROXANOL. APPEARED TO SLEEP RESTFULLY AFTER BEING LEFT UNDISTURBED FOLLOWING SECOND DOSE. NO FURTHER CRYING OUT FROM ROOM. APPEARS TO CONTINUE TO SLEEP QUIETLY. NO MOANING HEARD. SAT PROBE LEFT TO MONITOR TO ASSESS FOR ANY CHANGES TO NOTIFY FAMILY TO COME TO BEDSIDE IF NEEDED.
--- NOTE | 2022-05-02 07:20 | NUR ---
Pt resting in bed, appears to be sleeping. Breathing even and unlabored. No s/sx of distress noted
--- NOTE | 2022-05-02 09:30 | NUR ---
AM NOTE Pt alert, yelling out in pain. Pt anxious and tearful at times. Medicated with 10mg of roxanol and 1mg po ativan. Pt spouse at bedside. Pt denies sob, nausea, dizziness and numb/tingling. Heart sound irregularly irregular. Ls dim t/o spo2 >90% on ra, breathing labored while awake. Superpubic serrano in place, patent and draining. repositioned for comfort. Pt and family edcuated on comfort measures; plans to keep patient comfortable through the end of life process. Will continue to monitor.
--- NOTE | 2022-05-02 10:57 | NUR ---
Late entry note did not post. Pt and seen yesterday. Pt aggitated about comfort and pain. Very tactile sensitive and discomfort to coxxyx area. complain of general pain all over. She states she has a headache. Pt looks very fatigued and is grimacing. She is expressing wanting to go on hospice and oes not want to do this anymore. at bedside looks very fatigued. Initiated conversation with [facility] about hospice. they have [facility] seeing them. He states she needs a hospital bed and more care.Reviewed hospice care and the companies that offer service. They chose to stay with [facility]. Notified [facility] and sent a packet. will update care manger.
--- NOTE | 2022-05-02 14:10 | NUR ---
Pt resting in bed, appears to be sleeping comfortably. Breathing even and unlabored.
--- NOTE | 2022-05-02 14:13 | NUR ---
Report given to adán Mayo assuming care of patient. Spouse at bedside during transfer to new room.
--- NOTE | 2022-05-02 14:35 | NUR ---
PT ARRIVED 1350 VIA BED. PT ALERT AND A BIT ANXIOUS. AT BEDSIDE. ONCE SETTLED IN PT WAS TREATED PER EMAR FOR ANXIETY AND PAIN. WILL CONTINUE TO MONITOR.
--- NOTE | 2022-05-02 15:07 | NUR ---
Care conference with RN caring for pt. Reports pt is resting more conf today after change in medication regimen. Pt is has been sleeping better with the [place] and prn Roxinol and Lorazepam. Pt is refusing all scheduled routine medications. is at the bedside, pt opens her eyes and looks at this RN when I speak to her. She is [place] and has diff hearing me and answering questions. Pt sips on water when offered by her wo diff. Pt face is relaxed and appears to be comf. Pt reports she has been sleeping much better and had a good night. He reports is less agitated and smiled at him today after giving him a kiss. He is smiling and reminiscing about the life that they have had together. He reports they have been for 70 years and started dating while they were juniors in high school. He then says that on their first date, she told him that he was a horrible kisser which made him smile while telling this story. He asks what to expect and what are they waiting for. I advised him that we placed a request for Hospice consult and they will be coming to speak to him and the patient. We spoke about what it meant to be on Hospice and what benefits/resources come with Hospice and he VU. He becomes tearful and shares that this has been difficult year for them. He reports the in the last 3 months, they have lost a couple of family members, a close friend and now this. I offered support and theraputic listening while he spoke about their losses and the journey he is about to go on with his . He reports that he is thankful for all the family and support they have. He shares that his daughter in law is an experienced nurse and will be living with them to care for his when they go home. He receives a phone call during my visit and I advised him I will come back in the morning for another visit. He thanks me and I exit the room.
--- NOTE | 2022-05-02 17:39 | NUR ---
PT HAS BEEN KEEP COMFORTABLE. PT IS WANTING TO REFUSE REPOSITION AT TIMES. PT TREATED FOR PAIN AND AXIETY PER EMAR. WILL CONTINUE TO MONITOR.
--- NOTE | 2022-05-03 04:56 | NUR ---
SHIFT SUMMARY A/O 2-3, YELLS OUT OCCASSIONALY FOR WATER. REFUSED SOME REPOSITIONS. DENIES ANY PAIN. COMFORT CARE MEASURES IN PLACE. NO ACUTE CHANGES AT THIS TIME. BED IN LOWEST POSITION WITH CALL LIGHT IN REACH. WILL CONTINUE TO MONITOR AND REPORT TO ONCOMING RN.
[2022-05-03] MEDS ORDERED: GABA300 PO (11:37)
[2022-05-03] MEDS ORDERED: Ativan1 MG PO (11:38)
[2022-05-03] MEDS ORDERED: PROM25 PO (11:38)
[2022-05-03] MEDS ORDERED: MORP20L SL (11:38)
--- NOTE | 2022-05-03 13:01 | NUR ---
Pt is resting comf in bed with spouse at the bedside when this RN enters the room. Pt opens her eyes when I speak to her. Spouse reports pt just received pain medication and is starting to relax. Pt smiles, very [place] and diff to communicate with. Pt face is relaxed, no grimacing, breathing is even and unlabored. Pt spouse reports pt is sleeping better, appetite is still poor and she refused a bath today. Spouse is calm and reports he is coping ok and will be glad when his son and daughter in law arrive. Current plan is that pt will be discharged today to go home and placed on hospice with [employer]. Spouse reports that he has been unable to reach [facility] to make arrangements of a meeting time for DME. He has called 4x without success. I advised him I will see what I can do to help him with this. He is thankful for this help and looking forward to getting his home. Call placed to Control Officer, she reports all arrangements are being made by [employer]. Transport will be here at 1330 to citrus picker pt to take her home. Call placed to [employer], spoke to Nicolette, she reports she has been unbale to reach the [facility], his cell phone is going to . She reports she has already arranged delivery time of DME. It will be delivered at 1300 and Hpsice RN will arrive to admit the pt. I advised her that I would update the spouse. Current plan with times given to the spouse, he is appreaciative of this help. He has no other needs, questions or concerns at this time. Will continue to follow as needed.
--- NOTE | 2022-05-03 14:46 | NUR ---
PT HAS BEEN KEPT COMFORTABLE PER EMAR TODAY. PT TRANSFERED HOME AT 1442 VIA [facility]. HOSPICE TO BE AT HOME TO EVAULATE PT. PT REFUSES BATH TODAY WHILE WAS IN THE ROOM. PT WILL REFUSE SOME CARE. PT REPOSITIONED Q2 HRS. PACKET SENT WITH PT FOR HOME.
== END 2022-05-03 14:43 | disposition hospice, home (50) | DRG 291 ==
LOC: ER 18:16 → PCU 21:32 → MEDS 05-02 13:50
PROVIDERS: Student in an Organized Health Care Education/Training Program; ADMIT Internal Medicine
DX: I11.0 Hypertensive heart disease with heart failure (principal); I50.23 Acute on chronic systolic (congestive) heart failure; E87.1 Hypo-osmolality and hyponatremia; R64 Cachexia; Z68.1 Body mass index [BMI] 19.9 or less, adult; Z20.822 Contact with and (suspected) exposure to COVID-19; Z74.01 Bed confinement status; Z51.5 Encounter for palliative care; I48.91 Unspecified atrial fibrillation; M54.9 Dorsalgia, unspecified; G35 Multiple sclerosis; M81.0 Age-related osteoporosis without current pathological fracture; I50.32 Chronic diastolic (congestive) heart failure; E88.09 Other disorders of plasma-protein metabolism, not elsewhere classified; E87.5 Hyperkalemia; N31.9 Neuromuscular dysfunction of bladder, unspecified; G89.29 Other chronic pain; Z87.891 Personal history of nicotine dependence; Z98.890 Other specified postprocedural states; Z88.2 Allergy status to sulfonamides; Z88.8 Allergy status to other drugs, medicaments and biological substances; Z79.01 Long term (current) use of anticoagulants; Z79.899 Other long term (current) drug therapy
CPT/HCPCS: 0241U; 36415; 71045; 80053; 80162; 81001; 82947; 83605; 83735; 83880; 84484; 85025; 87040; 87077; 87086; 87186; 92610; 93005; 93010; 94760; 94762; 96374; 99285-25; A9270; J0610; J0696; J1160; J1815; J1885; J3010; J7030; P9047